=== PATIENT | male | born 1980 ===

== ENCOUNTER → 2017-09-11 | Outpatient (CLI) | payer BC ==
[~2017-09-11] MED LIST: METF500C PO
[2017-09-11 19:35] LABS: BASOPHILS ABSOLUTE AUTO 0.05 K/mm3 (0.00-0.23); BASOPHILS PERCENT AUTO 0 % (0-2); EOSINOPHILS PERCENT AUTO 7 % (0-6); Hematocrit 44.9 % (37.0-53.0); Hemoglobin 15.5 g/dL (13.5-17.5); IMMATURE GRAN ABSOLUTE AUTO 0.05 K/mm3 (0.00-0.10); IMMATURE GRAN PERCENT AUTO 0 % (0-1); LYMPHOCYTES ABSOLUTE AUTO 2.49 K/mm3 (0.84-5.20); LYMPHOCYTES PERCENT AUTO 22 % (21-46); MONOCYTES ABSOLUTE AUTO 0.92 K/mm3 (0.16-1.47); MONOCYTES PERCENT AUTO 8 % (4-13); Mean Corpuscular HGB 30.4 pg (26.0-34.0); Mean Corpuscular HGB Conc 34.5 g/dL (31.5-36.5); Mean Corpuscular Volume 88 fL (80-100); Mean Platelet Volume 9.7 fL (9.1-12.4); NEUTROPHILS PERCENT AUTO 62 % (41-73); Platelet Count 242 K/mm3 (150-400); RDW Coefficient Variation 12.7 % (11.7-14.2); RDW Standard Deviation 41.5 fL (35.1-46.3); White Blood Cell Count 11.41 K/mm3 (4.00-11.30)
[2017-09-11 19:41] LABS: Alanine Aminotransfer (ALT/SGP 63 U/L (12-78); Albumin, Blood 3.8 g/dL (3.4-5.0); Albumin/Globulin Ratio 0.8 (0.8-1.8); Alk Phos 72 U/L (50-136); Anion Gap 10 mmol/L (6-16); Aspartate Aminotrans (AST/SGOT 58 U/L (12-37); Bilirubin, Total 0.9 mg/dL (0.1-1.0); Blood Urea Nitrogen 21 mg/dL (8-24); Bun/Creatinine Ratio 25.5 (12.0-20.0); CO2, Blood 21 mmol/L (21-32); Calcium, Blood 8.7 mg/dL (8.5-10.1); Chloride, Blood 103 mmol/L (98-108); Creatinine, Blood 0.82 mg/dL (0.60-1.20); Globulin, Blood 4.7 g/dL (2.2-4.0); Glomerular Filtration Rate >60 (60-); Glucose, Blood 100 mg/dL (70-99); Potassium, Blood 3.5 mmol/L (3.5-5.5); Sodium, Blood 134 mmol/L (136-145); Total Protein, Blood 8.5 g/dL (6.4-8.2)
== END ==
LOC: LAB 19:00 → LAB SHORT 19:00
PROVIDERS: Physician Assistant
DX: R10.9 Unspecified abdominal pain (principal)
CPT/HCPCS: 80053; 85025

== ENCOUNTER 2017-09-13 15:44 | Emergency (ER) | payer BC ==
[~2017-09-13] VITALS: Ht 185.4 cm; Wt 154.2 kg
[2017-09-13] MEDS ORDERED: METF500C PO (16:15)
[2017-09-13 17:38] LABS: BASOPHILS ABSOLUTE AUTO 0.04 K/mm3 (0.00-0.23); BASOPHILS PERCENT AUTO 0 % (0-2); EOSINOPHILS ABSOLUTE AUTO 0.57 K/mm3 (0.00-0.68); EOSINOPHILS PERCENT AUTO 5 % (0-6); Hematocrit 46.2 % (37.0-53.0); Hemoglobin 15.7 g/dL (13.5-17.5); IMMATURE GRAN ABSOLUTE AUTO 0.04 K/mm3 (0.00-0.10); IMMATURE GRAN PERCENT AUTO 0 % (0-1); LYMPHOCYTES ABSOLUTE AUTO 2.89 K/mm3 (0.84-5.20); LYMPHOCYTES PERCENT AUTO 27 % (21-46); MONOCYTES ABSOLUTE AUTO 0.96 K/mm3 (0.16-1.47); MONOCYTES PERCENT AUTO 9 % (4-13); Mean Corpuscular HGB 29.9 pg (26.0-34.0); Mean Corpuscular Volume 88 fL (80-100); Mean Platelet Volume 9.4 fL (9.1-12.4); NEUTROPHILS ABSOLUTE AUTO 6.27 K/mm3 (1.96-9.15); NEUTROPHILS PERCENT AUTO 58 % (41-73); Platelet Count 249 K/mm3 (150-400); RDW Coefficient Variation 12.7 % (11.7-14.2); RDW Standard Deviation 41.3 fL (35.1-46.3); Red Blood Cell Count 5.25 M/mm3 (4.30-5.90); White Blood Cell Count 10.77 K/mm3 (4.00-11.30)
[2017-09-13 17:57] LABS: Alanine Aminotransfer (ALT/SGP 51 U/L (12-78); Albumin, Blood 3.7 g/dL (3.4-5.0); Albumin/Globulin Ratio 0.8 (0.8-1.8); Alk Phos 63 U/L (50-136); Anion Gap 11 mmol/L (6-16); Aspartate Aminotrans (AST/SGOT 56 U/L (12-37); Bilirubin, Total 0.6 mg/dL (0.1-1.0); Blood Urea Nitrogen 17 mg/dL (8-24); Bun/Creatinine Ratio 20.5 (12.0-20.0); CO2, Blood 22 mmol/L (21-32); Calcium, Blood 9.2 mg/dL (8.5-10.1); Chloride, Blood 103 mmol/L (98-108); Creatinine, Blood 0.83 mg/dL (0.60-1.20); Globulin, Blood 4.9 g/dL (2.2-4.0); Glomerular Filtration Rate >60 (60-); Glucose, Blood 83 mg/dL (70-99); Sodium, Blood 136 mmol/L (136-145); Total Protein, Blood 8.6 g/dL (6.4-8.2)
== END 2017-09-13 19:22 | disposition home or self-care (01) ==
LOC: ER 15:44
PROVIDERS: Physician Assistant
DX: R10.11 Right upper quadrant pain (principal); Z79.84 Long term (current) use of oral hypoglycemic drugs
CPT/HCPCS: 36415; 74176; 80053; 81000; 83690; 85025; 96374; 96375; 99284-25; J2405; J3010

== ENCOUNTER 2020-05-12 21:14 | Emergency (ER) | payer OTHER ==
[~2020-05-12] VITALS: Ht 185.4 cm; Wt 156.5 kg
[2020-05-12] MEDS ORDERED: Silvadene20 GM TOP (21:52)
[2020-05-12] MEDS ORDERED: AMOX-CLAV 875-1 EAC5 PO (21:52)
[2020-05-12] MEDS ORDERED: LOSARTAN POTASS25 M2 PO (21:54)
[2020-05-12] MEDS ORDERED: ESCI20 PO (21:54)
== END 2020-05-13 00:05 | disposition home or self-care (01) ==
LOC: ER 21:14
DX: T24.211A Burn of second degree of right thigh, initial encounter (principal); T21.22XA Burn of second degree of abdominal wall, initial encounter; T31.0 Burns involving less than 10% of body surface; I10 Essential (primary) hypertension; X14.1XXA Other contact with hot air and other hot gases, initial encounter; Y92.89 Other specified places as the place of occurrence of the external cause; Y99.0 Civilian activity done for income or pay
CPT/HCPCS: 99282; A9270

== ENCOUNTER 2020-05-24 00:27 | Day surgery (SDC) | payer OTHER ==
[~2020-05-24 00:27] MED LIST changes: +AMOX-CLAV 875-1 EAC5 PO; +ESCI20 PO; +LOSARTAN POTASS25 M2 PO; +Silvadene20 GM TOP
== END 2020-05-24 22:56 | disposition home or self-care (01) ==
LOC: WOUND 00:27
DX: T21.29XA Burn of second degree of other site of trunk, initial encounter (principal); T24.211A Burn of second degree of right thigh, initial encounter; X11.8XXA Contact with other hot tap-water, initial encounter
CPT/HCPCS: A9270; G0463

== ENCOUNTER 2020-05-31 00:20 | Day surgery (SDC) | payer OTHER | END 2020-05-31 23:02 | disposition home or self-care (01) | LOC: WOUND 00:20 | DX: T21.22XA Burn of second degree of abdominal wall, initial encounter (principal); X12.XXXA Contact with other hot fluids, initial encounter | CPT/HCPCS: G0463 ==

== ENCOUNTER 2021-02-03 13:02 | Inpatient (IN) | payer OTHER ==
[~2021-02-03] VITALS: Ht 188 cm; Wt 133.8 kg
[2021-02-03] MEDS ORDERED: LOSA50 PO (14:12)
[2021-02-03] MEDS ORDERED: FLUO10 PO (14:13)
[2021-02-03 14:14] LABS: BASOPHILS ABSOLUTE AUTO 0.01 K/mm3 (0.00-0.23); BASOPHILS PERCENT AUTO 0 % (0-2); EOSINOPHILS ABSOLUTE AUTO 0.01 K/mm3 (0.00-0.68); EOSINOPHILS PERCENT AUTO 0 % (0-6); Hemoglobin 17.2 g/dL (13.5-17.5); IMMATURE GRAN ABSOLUTE AUTO 0.07 K/mm3 (0.00-0.10); IMMATURE GRAN PERCENT AUTO 1 % (0-1); LYMPHOCYTES ABSOLUTE AUTO 0.91 K/mm3 (0.84-5.20); LYMPHOCYTES PERCENT AUTO 15 % (21-46); MONOCYTES ABSOLUTE AUTO 0.32 K/mm3 (0.16-1.47); MONOCYTES PERCENT AUTO 5 % (4-13); Mean Corpuscular HGB 30.2 pg (26.0-34.0); Mean Corpuscular HGB Conc 35.1 g/dL (31.5-36.5); Mean Corpuscular Volume 86 fL (80-100); Mean Platelet Volume 10.1 fL (9.1-12.4); NEUTROPHILS ABSOLUTE AUTO 4.59 K/mm3 (1.96-9.15); NEUTROPHILS PERCENT AUTO 78 % (41-73); Platelet Count 204 K/mm3 (150-400); RDW Coefficient Variation 11.7 % (11.7-14.2); RDW Standard Deviation 36.7 fL (35.1-46.3); Red Blood Cell Count 5.69 M/mm3 (4.30-5.90); White Blood Cell Count 5.91 K/mm3 (4.00-11.30)
[2021-02-03 14:47] LABS: Alanine Aminotransfer (ALT/SGP 49 U/L (12-78); Albumin, Blood 2.3 g/dL (3.4-5.0); Albumin/Globulin Ratio 0.5 (0.8-1.8); Alk Phos 54 U/L (50-136); Anion Gap 9 mmol/L (6-16); Aspartate Aminotrans (AST/SGOT 39 U/L (12-37); Blood Urea Nitrogen 16 mg/dL (8-24); Bun/Creatinine Ratio 22.1 (12.0-20.0); CO2, Blood 24 mmol/L (21-32); Calcium, Blood 8.4 mg/dL (8.5-10.1); Chloride, Blood 95 mmol/L (98-108); Creatinine, Blood 0.72 mg/dL (0.60-1.20); Globulin, Blood 4.9 g/dL (2.2-4.0); Glomerular Filtration Rate >60 (60-); Glucose, Blood 472 mg/dL (70-99); Potassium, Blood 4.2 mmol/L (3.5-5.5); Sodium, Blood 128 mmol/L (136-145); Total Protein, Blood 7.2 g/dL (6.4-8.2)
[2021-02-03 14:49] LABS: Troponin I 0.972 ng/mL (0.000-0.040)
[2021-02-03 16:04] LABS: Influenza A, PCR NEGATIVE (NEGATIVE); Influenza B, PCR NEGATIVE (NEGATIVE); Resp Syncytial Virus, PCR NEGATIVE (NEGATIVE); SARS-Cov-2 (COVID-19) PCR, MMC NEGATIVE (NEGATIVE)
[2021-02-04 02:15] LABS: BASOPHILS ABSOLUTE AUTO 0.01 K/mm3 (0.00-0.23); BASOPHILS PERCENT AUTO 0 % (0-2); EOSINOPHILS PERCENT AUTO 0 % (0-6); Hematocrit 46.7 % (37.0-53.0); Hemoglobin 16.6 g/dL (13.5-17.5); IMMATURE GRAN ABSOLUTE AUTO 0.04 K/mm3 (0.00-0.10); IMMATURE GRAN PERCENT AUTO 1 % (0-1); LYMPHOCYTES ABSOLUTE AUTO 0.95 K/mm3 (0.84-5.20); LYMPHOCYTES PERCENT AUTO 25 % (21-46); MONOCYTES ABSOLUTE AUTO 0.11 K/mm3 (0.16-1.47); MONOCYTES PERCENT AUTO 3 % (4-13); Mean Corpuscular HGB 30.5 pg (26.0-34.0); Mean Corpuscular HGB Conc 35.5 g/dL (31.5-36.5); Mean Corpuscular Volume 86 fL (80-100); Mean Platelet Volume 9.9 fL (9.1-12.4); NEUTROPHILS ABSOLUTE AUTO 2.77 K/mm3 (1.96-9.15); NEUTROPHILS PERCENT AUTO 71 % (41-73); Platelet Count 202 K/mm3 (150-400); RDW Coefficient Variation 11.6 % (11.7-14.2); RDW Standard Deviation 36.8 fL (35.1-46.3); Red Blood Cell Count 5.45 M/mm3 (4.30-5.90); White Blood Cell Count 3.88 K/mm3 (4.00-11.30)
[2021-02-04 06:30] LABS: Alanine Aminotransfer (ALT/SGP 50 U/L (12-78); Albumin/Globulin Ratio 0.4 (0.8-1.8); Alk Phos 50 U/L (50-136); Anion Gap 9 mmol/L (6-16); Aspartate Aminotrans (AST/SGOT 41 U/L (12-37); Bilirubin, Total 0.4 mg/dL (0.1-1.0); Blood Urea Nitrogen 22 mg/dL (8-24); Bun/Creatinine Ratio 29.1 (12.0-20.0); CHOL/HDL RATIO 5.9; CO2, Blood 25 mmol/L (21-32); Calcium, Blood 8.8 mg/dL (8.5-10.1); Chloride, Blood 103 mmol/L (98-108); Cholesterol 113 mg/dL (50-200); Creatinine, Blood 0.76 mg/dL (0.60-1.20); Globulin, Blood 5.2 g/dL (2.2-4.0); Glomerular Filtration Rate >60 (60-); Glucose, Blood 336 mg/dL (70-99); HDL Cholesterol 19 mg/dL (>39); Low Density Lipoprotein Chol 77 mg/dL (0-110); Potassium, Blood 4.4 mmol/L (3.5-5.5); Sodium, Blood 137 mmol/L (136-145); Total Protein, Blood 7.2 g/dL (6.4-8.2); Triglycerides 87 mg/dL (30-160); Very Low Density Lipoprot Chol 17 mg/dL (6-32)
--- NOTE | 2021-02-04 06:38 | NUR ---
SHIFT SUMMARY S/P NSTEMI, A/O X4, VSS, TOLERATING PO, INDEPENDENT IN ROOM, CBG'S HIGH R/T STEROID USE FOR RA FLARE UP. PT STABLE SINCE ARRIVAL TO THE FLOOR, NO ACUTE EVENTS THIS SHIFT, CALL LIGHT IN REACH, WILL CTM AND REPORT TO DAY RN.
--- NOTE | 2021-02-04 15:49 | NUR ---
PATIENT CURRENTLY LYING IN BED WITH NO SIGNS OR SYMPTOMS ACUTE DISTRESS NOTED. CALL LIGHT AND WATER IN EASY REACH. ABLE TO MAKE NEEDS AND WANTS KNOWN. SUTURES TO LEFT KNEE REMOVED TODAY, PATIENT TOLERATED WELL. PATIENT HAS PICC LINE TO LEFT UPPER ARM DR ARIAS SAID COULD BE USED AND BLOOD DRAWS FROM IT. PATIENT ABLE TO STAND AT BEDSIDE TO USE THE URINAL WITH WALKER. KNEE IMMOBILIZER ON CORRECTLY. PATIENT IS ALERT AND OREINTED WITH NO COMPLAINTS OF PAIN. WILEY XIE.
--- NOTE | 2021-02-04 16:23 | NUR ---
Pt reported no prior diabetes diet education and was interested in education. Pt already had good understanding of what foods impact blood sugars, so discussed recommended portion sizes and benefits of choosing whole grains over refined grains. Pt typically eats 1 meal/d, so encouraged pt to aim for more consistent intake throughout the day to prevent large swings in blood sugars and overconsumption at 1 meal per day d/t hunger. Discussed role of physical activity in reducing blood sugars. Discussed impact of stress, illness, and medications on blood sugars. Moderate compliance expected.
--- NOTE | 2021-02-04 17:16 | NUR ---
PATIENT CURRENTLY LYING IN BED WITH NO SIGNS OR SYMPTOMS ACUTE DISTRESS NOTED. CALL LIGHT AND WATER IN EASY REACH. ABLE TO MAKE NEEDS AND WANTS KNOWN. CARDIOLOGY CONSULTED ON PATIENT TODAY. NO COMPLAINTS OF CHEST PAIN TODAY. HEPARIN GTT STOPPED. WILL MONITOR.
[2021-02-04 20:41] LABS: Glucose, Blood 564 mg/dL (70-99)
[2021-02-04 21:24] LABS: pH Blood Arterial 7.48 (7.35-7.45)
[2021-02-04 21:25] LABS: PCO2 Arterial 30.1 mmHg (35-45); PO2 Arterial 91.8 mmHg (80-100)
[2021-02-04 21:57] LABS: U Amphetamine Screen Not Detected; U Barbituate Screen Not Detected; U Benzodiazapine Screen Not Detected; U Buprenorphine Screen Not Detected; U Cannabinoids Screen Not Detected; U Cocaine Screen Not Detected; U Methadone Screen Not Detected; U Methamphetamine Screen Not Detected; U Opiates Screen Not Detected; U Oxycodone Screen Not Detected; U Phencyclidine Screen Not Detected; U Propoxyphene Screen Not Detected
[2021-02-04 22:27] LABS: Beta-hydroxybutyrate 3.3 mg/dL (0.2-2.8); Magnesium, Blood 1.9 mg/dL (1.6-2.4); Phosphorus, Blood 2.8 mg/dL (2.5-4.9)
[2021-02-04 22:34] LABS: Glucose, Blood 509 mg/dL (70-99)
--- NOTE | 2021-02-04 23:40 | NUR ---
PT BLOOD SUGAR LEVEL REMAINS ELEVATED MUCH OF THE EVENING. NURSE REMAINS IN TOUCH WITH DR CORONADO WHO PUT IN ORDERS SUCH EXTRA INSULIN, BLOOD WORK AND HOLD MIDNIGHT STEROID MEDICINE. ORDERS WERE CARRIED OUT INSTRUCTED, PT MADE AWARE OF HIS CONDITION AND WHAT IS BEING DONE TO IMPROVE HIS HIGH BLOOD SUGAR LEVELS.
[2021-02-05 00:28] LABS: Glucose, Blood 466 mg/dL (70-99)
[2021-02-05 04:28] LABS: BASOPHILS ABSOLUTE AUTO 0.01 K/mm3 (0.00-0.23); BASOPHILS PERCENT AUTO 0 % (0-2); EOSINOPHILS PERCENT AUTO 0 % (0-6); Hematocrit 43.1 % (37.0-53.0); Hemoglobin 15.6 g/dL (13.5-17.5); IMMATURE GRAN ABSOLUTE AUTO 0.05 K/mm3 (0.00-0.10); IMMATURE GRAN PERCENT AUTO 1 % (0-1); LYMPHOCYTES ABSOLUTE AUTO 1.05 K/mm3 (0.84-5.20); LYMPHOCYTES PERCENT AUTO 13 % (21-46); MONOCYTES ABSOLUTE AUTO 0.77 K/mm3 (0.16-1.47); MONOCYTES PERCENT AUTO 10 % (4-13); Mean Corpuscular HGB 30.5 pg (26.0-34.0); Mean Corpuscular HGB Conc 36.2 g/dL (31.5-36.5); Mean Corpuscular Volume 84 fL (80-100); Mean Platelet Volume 10.2 fL (9.1-12.4); NEUTROPHILS ABSOLUTE AUTO 6.02 K/mm3 (1.96-9.15); NEUTROPHILS PERCENT AUTO 76 % (41-73); Platelet Count 227 K/mm3 (150-400); RDW Coefficient Variation 11.5 % (11.7-14.2); RDW Standard Deviation 35.5 fL (35.1-46.3); Red Blood Cell Count 5.11 M/mm3 (4.30-5.90)
[2021-02-05 04:51] LABS: Anion Gap 6 mmol/L (6-16); Blood Urea Nitrogen 25 mg/dL (8-24); Bun/Creatinine Ratio 39.1 (12.0-20.0); CO2, Blood 25 mmol/L (21-32); Calcium, Blood 8.7 mg/dL (8.5-10.1); Chloride, Blood 106 mmol/L (98-108); Creatinine, Blood 0.64 mg/dL (0.60-1.20); Glomerular Filtration Rate >60 (60-); Glucose, Blood 353 mg/dL (70-99); Potassium, Blood 4.3 mmol/L (3.5-5.5); Sodium, Blood 137 mmol/L (136-145)
--- NOTE | 2021-02-05 15:30 | NUR ---
Pt. was resting on his side when he welcomed my visit. Pt. was clearly gaurded about his condition and I offered support and prayer. He kindly denied prayer, but thanked me for stopping o see him.
--- NOTE | 2021-02-05 17:26 | NUR ---
PATIENT LYING IN BED WITH NO SIGNS OR SYMPTOMS ACUTE DISTRESS NOTED. CALL LIGHT AND WATER IN EASY REACH. ABLE TO MAKE NEEDS AND WANTS KNOWN. NO COMPLAINTS OF CHEST PAIN TODAY. FIRST PART OF STRESS TEST ADMINISTERED TODAY. PATIENT WILL BE NPO AFTER MIDNIGHT, NO CAFFEINE OR CAFFIENE FREE COFFEE AFTER 2000 TONIGHT. PATIENT MAY HAVE WATER AFTER MIDNIGHT. PATIENT IS AWARE OF THIS AND VERBALIZED UNDERSTANDING. MEDICATION CHANGES MADE TODAY IN REGARDS TO PATIENTS BLOOD SUGARS.
--- NOTE | 2021-02-05 21:16 | NUR ---
BS 378, NOTIFIED RYAN OROZCO, NO NEW ORDERS, RECEIVED SCHEDULED LANTUS AND INSULIN PER SLIDING SCALE.
--- NOTE | 2021-02-06 04:56 | NUR ---
ALERT AND ORIENTED X'S 4. DENIES PAIN OR DISCOMFORT. SLEPT WELL THROUGH NIGHT, REMAINED NPO AFTER 12AM. RESTING PEACEFULLY IN BED, SAFETY MAINTAED.
[2021-02-06] MEDS ORDERED: ASPI81CH PO (11:45)
[2021-02-06] MEDS ORDERED: Amlodipine Bes2.5 MG PO (11:45)
[2021-02-06] MEDS ORDERED: ATOR80 PO (11:46)
[2021-02-06] MEDS ORDERED: METO50ER PO (11:47)
[2021-02-06] MEDS ORDERED: Prednisone10 MG PO (11:48)
[2021-02-06] MEDS ORDERED: INSULANPEN SC (11:50)
[2021-02-06] MEDS ORDERED: INSULIN LI100 UNIT/6 SC (11:52)
[2021-02-06] MEDS ORDERED: INSULANI SC (11:52)
[2021-02-06] MEDS ORDERED: Microlet1 EACH SC (14:20)
--- NOTE | 2021-02-06 16:21 | NUR ---
DISCHARGE: DISCHARGE INSTUCTIONS GIVEN TO PATIENT AT THIS TIME. PATIENT VERBALIZED UNDERSTANDING. PATIENT TO FOLLOW UP PCP, REUMATOLOGY AND CARIOLOGY. NO SIGNS OR SYMPTOMS ACUTE DISTRESS NOTED. IV'S REMOVED.
== END 2021-02-06 16:24 | disposition home or self-care (01) | DRG 545 ==
LOC: ER 13:02 → ERHOLD 16:46 → SURS 16:46
PROVIDERS: Hospitalist; Nurse Practitioner Acute Care; Physician Assistant; Student in an Organized Health Care Education/Training Program; ADMIT Internal Medicine
DX: M05.30 Rheumatoid heart disease with rheumatoid arthritis of unspecified site (principal); I21.4 Non-ST elevation (NSTEMI) myocardial infarction; I10 Essential (primary) hypertension; E11.65 Type 2 diabetes mellitus with hyperglycemia; Z20.822 Contact with and (suspected) exposure to COVID-19; E66.9 Obesity, unspecified; G47.30 Sleep apnea, unspecified; R00.1 Bradycardia, unspecified; F32.A Depression, unspecified; H54.40 Blindness, one eye, unspecified eye; F17.290 Nicotine dependence, other tobacco product, uncomplicated; R91.1 Solitary pulmonary nodule; Z68.38 Body mass index [BMI] 38.0-38.9, adult; Z79.899 Other long term (current) drug therapy; Z79.84 Long term (current) use of oral hypoglycemic drugs
CPT/HCPCS: 0241U; 36415; 36600; 71046; 71260; 78452; 80048; 80053; 80061; 82010; 82803; 82947; 83036; 83690; 83735; 83880; 84100; 84484; 85025; 85520; 85651; 86140; 93005; 93010; 93017; 93306; 96365; 96366; 96375; 96376; 99285-25; A9270; A9500; J1644; J1815; J1885; J2785; J2930; J3010; J7030; Q9967

== ENCOUNTER 2021-04-17 07:55 | Observation (INO) | payer OTHER ==
[~2021-04-17] VITALS: Ht 185.4 cm; Wt 117.2 kg
[~2021-04-17 07:55] MED LIST changes: +ASPI81CH PO; +ATOR80 PO; +Amlodipine Bes2.5 MG PO; +FLUO10 PO; +INSULANI SC; +INSULANPEN SC; +INSULIN LI100 UNIT/6 SC; +LOSA50 PO; +METO50ER PO; +Microlet1 EACH SC; +Prednisone10 MG PO
[2021-04-17 08:26] LABS: BASOPHILS ABSOLUTE AUTO 0.02 K/mm3 (0.00-0.23); BASOPHILS PERCENT AUTO 0 % (0-2); EOSINOPHILS ABSOLUTE AUTO 0.06 K/mm3 (0.00-0.68); EOSINOPHILS PERCENT AUTO 1 % (0-6); Hemoglobin 12.2 g/dL (13.5-17.5); IMMATURE GRAN ABSOLUTE AUTO 0.06 K/mm3 (0.00-0.10); IMMATURE GRAN PERCENT AUTO 1 % (0-1); LYMPHOCYTES PERCENT AUTO 15 % (21-46); MONOCYTES ABSOLUTE AUTO 0.22 K/mm3 (0.16-1.47); MONOCYTES PERCENT AUTO 5 % (4-13); Mean Corpuscular HGB 29.6 pg (26.0-34.0); Mean Corpuscular HGB Conc 33.9 g/dL (31.5-36.5); Mean Corpuscular Volume 87 fL (80-100); Mean Platelet Volume 8.8 fL (9.1-12.4); NEUTROPHILS ABSOLUTE AUTO 3.73 K/mm3 (1.96-9.15); NEUTROPHILS PERCENT AUTO 78 % (41-73); Platelet Count 388 K/mm3 (150-400); RDW Coefficient Variation 12.8 % (11.7-14.2); RDW Standard Deviation 40.6 fL (35.1-46.3); Red Blood Cell Count 4.12 M/mm3 (4.30-5.90); White Blood Cell Count 4.79 K/mm3 (4.00-11.30)
[2021-04-17 08:48] LABS: Alanine Aminotransfer (ALT/SGP 37 U/L (12-78); Albumin, Blood 2.2 g/dL (3.4-5.0); Albumin/Globulin Ratio 0.4 (0.8-1.8); Alk Phos 75 U/L (50-136); Anion Gap 7 mmol/L (6-16); Aspartate Aminotrans (AST/SGOT 34 U/L (12-37); Bilirubin, Total 0.8 mg/dL (0.1-1.0); Blood Urea Nitrogen 6 mg/dL (8-24); Bun/Creatinine Ratio 10.8 (12.0-20.0); CO2, Blood 28 mmol/L (21-32); Calcium, Blood 8.4 mg/dL (8.5-10.1); Chloride, Blood 100 mmol/L (98-108); Creatinine, Blood 0.55 mg/dL (0.60-1.20); Glomerular Filtration Rate >60 (60-); Glucose, Blood 208 mg/dL (70-99); Potassium, Blood 3.5 mmol/L (3.5-5.5); Sodium, Blood 135 mmol/L (136-145); Total Protein, Blood 7.2 g/dL (6.4-8.2)
--- NOTE | 2021-04-17 17:50 | NUR ---
SHIFT SUMMARY PATIENT ADMITTED AT 1330 FROM ER. PATIENT SETTLED INTO ROOM. PATIENT IS INDEPENDENT IN ROOM. ECHO COMPLETE, AWAITING RESULTS. PATIENT DENIES PAIN, NAUSEA, AND SHORTNESS OF BREATH. PATIENT IS EATING AND DRINKING WELL. PATIENT IS PLEASANT AND COOPERATIVE WITH CARE.
[2021-04-18 04:53] LABS: BASOPHILS ABSOLUTE AUTO 0.01 K/mm3 (0.00-0.23); BASOPHILS PERCENT AUTO 0 % (0-2); EOSINOPHILS PERCENT AUTO 0 % (0-6); Hematocrit 35.2 % (37.0-53.0); Hemoglobin 11.9 g/dL (13.5-17.5); IMMATURE GRAN ABSOLUTE AUTO 0.03 K/mm3 (0.00-0.10); IMMATURE GRAN PERCENT AUTO 1 % (0-1); LYMPHOCYTES ABSOLUTE AUTO 0.91 K/mm3 (0.84-5.20); LYMPHOCYTES PERCENT AUTO 20 % (21-46); MONOCYTES ABSOLUTE AUTO 0.24 K/mm3 (0.16-1.47); MONOCYTES PERCENT AUTO 5 % (4-13); Mean Corpuscular HGB 29.1 pg (26.0-34.0); Mean Corpuscular HGB Conc 33.8 g/dL (31.5-36.5); Mean Corpuscular Volume 86 fL (80-100); NEUTROPHILS ABSOLUTE AUTO 3.45 K/mm3 (1.96-9.15); NEUTROPHILS PERCENT AUTO 74 % (41-73); Platelet Count 423 K/mm3 (150-400); RDW Coefficient Variation 12.7 % (11.7-14.2); RDW Standard Deviation 40.1 fL (35.1-46.3); Red Blood Cell Count 4.09 M/mm3 (4.30-5.90); White Blood Cell Count 4.64 K/mm3 (4.00-11.30)
--- NOTE | 2021-04-18 04:57 | NUR ---
SHIFT SUMMARY: PT IS A/OX4. HE WAS INDEPENDENT IN THE ROOM. PER TELE MONITOR: SR/73. HIS ACCUCHECK WAS 372 @ 2100 W/ NO SS COVERAGE--THE PT STATES THIS IS A NORMAL NUMBER FOR HIM. HE DID RECEIVE 1L OF NS AND IS NOW SL. INITIALLY HE DID HAVE C/O OF PAIN, BUT NEVER REQUESTED ANY PRN PAIN MEDICATION. WE WILL CONTINUE TO MONITOR THE REST OF THE NOC SHIFT.
[2021-04-18 05:43] LABS: Alanine Aminotransfer (ALT/SGP 27 U/L (12-78); Albumin, Blood 2.2 g/dL (3.4-5.0); Albumin/Globulin Ratio 0.5 (0.8-1.8); Alk Phos 78 U/L (50-136); Anion Gap 8 mmol/L (6-16); Aspartate Aminotrans (AST/SGOT 29 U/L (12-37); Bilirubin, Total 0.6 mg/dL (0.1-1.0); Blood Urea Nitrogen 12 mg/dL (8-24); Bun/Creatinine Ratio 21.4 (12.0-20.0); CO2, Blood 27 mmol/L (21-32); Calcium, Blood 8.5 mg/dL (8.5-10.1); Chloride, Blood 101 mmol/L (98-108); Creatinine, Blood 0.56 mg/dL (0.60-1.20); Globulin, Blood 4.6 g/dL (2.2-4.0); Glomerular Filtration Rate >60 (60-); Glucose, Blood 321 mg/dL (70-99); Potassium, Blood 4.6 mmol/L (3.5-5.5); Sodium, Blood 136 mmol/L (136-145); Total Protein, Blood 6.8 g/dL (6.4-8.2)
[2021-04-18] MEDS ORDERED: COLCHICINE0.6 MG PO (12:03)
[2021-04-18] MEDS ORDERED: PRED20 PO (12:04)
[2021-04-18] MEDS ORDERED: GLIP5 PO (12:04)
--- NOTE | 2021-04-18 13:22 | NUR ---
DISCHARGE SUMMARY PATIENT DISCHARGED HOME. MEDICATIONS FAXED TO [facility]. PATIENT TO SCHEDULE F/U APPT HIMSELF PER PATIENT REQUEST. DISCHARGE PAPERWORK REVIEWED AND ALL QUESTIONS ANSWERED. ALL BELONGSING TAKEN WITH PATIENT.
== END 2021-04-18 13:16 | disposition home or self-care (01) ==
LOC: ER 07:55 → MEDS 07:56
PROVIDERS: Emergency Medicine; ADMIT Internal Medicine
DX: I30.9 Acute pericarditis, unspecified (principal); M06.9 Rheumatoid arthritis, unspecified; E11.65 Type 2 diabetes mellitus with hyperglycemia; I10 Essential (primary) hypertension; F17.290 Nicotine dependence, other tobacco product, uncomplicated; K59.00 Constipation, unspecified; E66.9 Obesity, unspecified; F32.A Depression, unspecified; Z68.36 Body mass index [BMI] 36.0-36.9, adult; Z79.4 Long term (current) use of insulin
CPT/HCPCS: 36415; 71045; 80053; 82947; 84484; 85025; 85651; 86141; 93005; 93010; 93308; 93321; 96372; 96374; 99285-25; A9270; G0378; J1650; J2930; J7030

== ENCOUNTER 2021-08-28 14:20 | Emergency (ER) | payer OTHER ==
[~2021-08-28] VITALS: Ht 188 cm; Wt 111.1 kg
[~2021-08-28 14:20] MED LIST changes: +COLCHICINE0.6 MG PO; +GLIP5 PO; +IBUP200 PO; +PRED20 PO; +Prednisone20 MG PO; +Protonix40 MG PO
[2021-08-28 15:05] LABS: BASOPHILS ABSOLUTE AUTO 0.01 K/mm3 (0.00-0.23); BASOPHILS PERCENT AUTO 0 % (0-2); EOSINOPHILS ABSOLUTE AUTO 0.18 K/mm3 (0.00-0.68); EOSINOPHILS PERCENT AUTO 4 % (0-6); Hematocrit 38.3 % (37.0-53.0); Hemoglobin 12.8 g/dL (13.5-17.5); IMMATURE GRAN ABSOLUTE AUTO 0.04 K/mm3 (0.00-0.10); IMMATURE GRAN PERCENT AUTO 1 % (0-1); LYMPHOCYTES ABSOLUTE AUTO 1.03 K/mm3 (0.84-5.20); LYMPHOCYTES PERCENT AUTO 21 % (21-46); MONOCYTES PERCENT AUTO 6 % (4-13); Mean Corpuscular HGB 28.1 pg (26.0-34.0); Mean Corpuscular HGB Conc 33.4 g/dL (31.5-36.5); Mean Corpuscular Volume 84 fL (80-100); Mean Platelet Volume 8.2 fL (9.1-12.4); NEUTROPHILS ABSOLUTE AUTO 3.46 K/mm3 (1.96-9.15); NEUTROPHILS PERCENT AUTO 69 % (41-73); Platelet Count 436 K/mm3 (150-400); RDW Coefficient Variation 14.3 % (11.7-14.2); RDW Standard Deviation 44.1 fL (35.1-46.3); Red Blood Cell Count 4.56 M/mm3 (4.30-5.90); White Blood Cell Count 5.02 K/mm3 (4.00-11.30)
[2021-08-28 15:26] LABS: Albumin/Globulin Ratio 0.5 (0.8-1.8); Bilirubin, Total 0.4 mg/dL (0.1-1.0); C-REACTIVE PROTEIN, EXT RANGE 11.4 mg/dL (0.000-0.300); Calcium, Blood 9.3 mg/dL (8.5-10.1); Creatinine, Blood 0.62 mg/dL (0.60-1.20); Globulin, Blood 5.9 g/dL (2.2-4.0); Potassium, Blood 4.2 mmol/L (3.5-5.5); Total Protein, Blood 8.9 g/dL (6.4-8.2)
[2021-08-28] MEDS ORDERED: Bactrim Ds Tab1 EACH PO ×2 (16:10→16:12)
[2021-08-28] MEDS ORDERED: CEPH500 PO ×2 (16:10→16:12)
[2021-08-28] MEDS ORDERED: Percocet 5-3251 EACH PO (16:12)
== END 2021-08-28 17:11 | disposition home or self-care (01) ==
LOC: ER 14:20
PROVIDERS: Physician Assistant
DX: L03.115 Cellulitis of right lower limb (principal); I10 Essential (primary) hypertension; E11.9 Type 2 diabetes mellitus without complications; F17.210 Nicotine dependence, cigarettes, uncomplicated; Z88.8 Allergy status to other drugs, medicaments and biological substances; Z91.018 Allergy to other foods; Z79.899 Other long term (current) drug therapy
CPT/HCPCS: 36415; 73562-RT; 80053; 85025; 86140; A9270; J1885; J7030

== ENCOUNTER 2021-11-02 10:21 | Emergency (ER) | payer OTHER ==
[~2021-11-02] VITALS: Ht 185.4 cm; Wt 113.4 kg
[~2021-11-02 10:21] MED LIST changes: +Bactrim Ds Tab1 EACH PO; +CEPH500 PO; +Percocet 5-3251 EACH PO
[2021-11-02] MEDS ORDERED: Bactrim Ds Tab1 EACH PO (10:59)
[2021-11-02] MEDS ORDERED: CEPH500 PO (10:59)
== END 2021-11-02 11:06 | disposition home or self-care (01) ==
LOC: ER 10:21
DX: L02.611 Cutaneous abscess of right foot (principal); I10 Essential (primary) hypertension; E11.9 Type 2 diabetes mellitus without complications; F17.290 Nicotine dependence, other tobacco product, uncomplicated; F17.210 Nicotine dependence, cigarettes, uncomplicated; Z88.8 Allergy status to other drugs, medicaments and biological substances; Z91.018 Allergy to other foods
CPT/HCPCS: 99282

== ENCOUNTER 2021-11-28 21:50 | Inpatient (IN) | payer OTHER ==
[~2021-11-28] VITALS: Ht 185.4 cm; Wt 104.0 kg
[2021-11-29 00:02] LABS: BASOPHILS ABSOLUTE AUTO 0.01 K/mm3 (0.00-0.23); BASOPHILS PERCENT AUTO 0 % (0-2); EOSINOPHILS ABSOLUTE AUTO 0.07 K/mm3 (0.00-0.68); EOSINOPHILS PERCENT AUTO 2 % (0-6); Hematocrit 37.3 % (37.0-53.0); Hemoglobin 12.7 g/dL (13.5-17.5); IMMATURE GRAN PERCENT AUTO 0 % (0-1); LYMPHOCYTES ABSOLUTE AUTO 1.08 K/mm3 (0.84-5.20); LYMPHOCYTES PERCENT AUTO 30 % (21-46); MONOCYTES PERCENT AUTO 8 % (4-13); Mean Corpuscular HGB 28.7 pg (26.0-34.0); Mean Corpuscular Volume 84 fL (80-100); Mean Platelet Volume 9.4 fL (9.1-12.4); NEUTROPHILS ABSOLUTE AUTO 2.11 K/mm3 (1.96-9.15); NEUTROPHILS PERCENT AUTO 59 % (41-73); Platelet Count 217 K/mm3 (150-400); RDW Standard Deviation 42.9 fL (35.1-46.3); Red Blood Cell Count 4.43 M/mm3 (4.30-5.90); White Blood Cell Count 3.57 K/mm3 (4.00-11.30)
[2021-11-29 00:22] LABS: Albumin, Blood 2.9 g/dL (3.4-5.0); Albumin/Globulin Ratio 0.5 (0.8-1.8); Bilirubin, Total 0.4 mg/dL (0.1-1.0); Bun/Creatinine Ratio 14.4 (12.0-20.0); C-REACTIVE PROTEIN, EXT RANGE 9.18 mg/dL (0.000-0.300); Calcium, Blood 8.8 mg/dL (8.5-10.1); Creatinine, Blood 0.84 mg/dL (0.60-1.20); Globulin, Blood 5.8 g/dL (2.2-4.0); Potassium, Blood 3.8 mmol/L (3.5-5.5); Total Protein, Blood 8.7 g/dL (6.4-8.2)
--- NOTE | 2021-11-29 03:46 | NUR ---
REPORT FROM RAHUL CENTENO IN ER. NO CHANGES SINCE ER PHYSICIAN DOCUMENTATION. AWAITING PATIENT ARRIVAL.
--- NOTE | 2021-11-29 05:35 | NUR ---
PATIENT IS ALERT AND ORIENTED x 4. UP INDEPENDENTLY IN ROOM. AMBULATES WALKING ON LEFT HEEL. LEFT FOOT PAIN HERRERA WITH SHARP PAINS SHOOTING UP LEG. FENTANYL AND TORADOL GIVEN FOR RELIEF. FOOT ELEVATED ON PILLOW AND WRAPPED. PHOTOS ON CHART
--- NOTE | 2021-11-29 07:56 | NUR ---
CALLED SURGERY CONSULT ANSWERING SERVICE AND TALKED TO FIELD GEOLOGIST. LEFT INDFORMATION FOR SURGICAL CONSULT.
[2021-11-29 08:20] LABS: BASOPHILS ABSOLUTE AUTO 0.01 K/mm3 (0.00-0.23); BASOPHILS PERCENT AUTO 0 % (0-2); EOSINOPHILS ABSOLUTE AUTO 0.09 K/mm3 (0.00-0.68); EOSINOPHILS PERCENT AUTO 3 % (0-6); Hematocrit 34.1 % (37.0-53.0); Hemoglobin 11.5 g/dL (13.5-17.5); IMMATURE GRAN ABSOLUTE AUTO 0.01 K/mm3 (0.00-0.10); IMMATURE GRAN PERCENT AUTO 0 % (0-1); LYMPHOCYTES ABSOLUTE AUTO 0.86 K/mm3 (0.84-5.20); LYMPHOCYTES PERCENT AUTO 24 % (21-46); MONOCYTES ABSOLUTE AUTO 0.41 K/mm3 (0.16-1.47); MONOCYTES PERCENT AUTO 12 % (4-13); Mean Corpuscular HGB 28.5 pg (26.0-34.0); Mean Corpuscular HGB Conc 33.7 g/dL (31.5-36.5); Mean Corpuscular Volume 84 fL (80-100); Mean Platelet Volume 9.4 fL (9.1-12.4); NEUTROPHILS ABSOLUTE AUTO 2.17 K/mm3 (1.96-9.15); NEUTROPHILS PERCENT AUTO 61 % (41-73); Platelet Count 192 K/mm3 (150-400); RDW Standard Deviation 43.3 fL (35.1-46.3); Red Blood Cell Count 4.04 M/mm3 (4.30-5.90); White Blood Cell Count 3.55 K/mm3 (4.00-11.30)
--- NOTE | 2021-11-29 08:29 | NUR ---
CALLED PODIATARY CONSULT DR JANE. HE SAID HE WILL BE HERE THIS AFTERNOON AND PT MAY EAT BREAKFAST THEN NPO AGAIN.
[2021-11-29 08:30] LABS: Albumin, Blood 2.4 g/dL (3.4-5.0); Albumin/Globulin Ratio 0.4 (0.8-1.8); Bilirubin, Total 0.8 mg/dL (0.1-1.0); Bun/Creatinine Ratio 13.9 (12.0-20.0); Calcium, Blood 8.2 mg/dL (8.5-10.1); Creatinine, Blood 0.79 mg/dL (0.60-1.20); Globulin, Blood 5.5 g/dL (2.2-4.0); Potassium, Blood 3.7 mmol/L (3.5-5.5); Total Protein, Blood 7.9 g/dL (6.4-8.2)
--- NOTE | 2021-11-29 08:34 | NUR ---
DR JANE CALLED BACK - ORDER CHANGED TO NPO
[2021-11-29 11:18] LABS: Influenza A, PCR NEGATIVE (NEGATIVE); Influenza B, PCR NEGATIVE (NEGATIVE); Resp Syncytial Virus, PCR NEGATIVE (NEGATIVE); SARS-Cov-2 (COVID-19) PCR, MMC NEGATIVE (NEGATIVE)
--- NOTE | 2021-11-29 14:57 | NUR ---
MR ARIAS WENT TO THE OR AT 1440HRS. MEDICATED ONCE THIS SHIFT WITH FENTANYL 25MCG IV WHICH HELPED TO EASE THE R FOOT PAIN. DRESSING LEFT UNDISTURBED THIS AM PLAN TO GO TO OR TODAY. KEPT NPO THIS AM. UP INDEPENDENTLY TO BATHROOM. IVF CONTINUOUS PRE OR.
--- NOTE | 2021-11-29 15:13 | NUR ---
PT HAS AN 18 G IV IN L WRIST THAT FLUSHES WELL AND RUNS WELL TO GRAVITY. IT SHOWS NO SIGNS OF INFILTRATION, NO SWELLING, REDNESS, INFLAMATION, OR LEAKING.
--- NOTE | 2021-11-29 16:28 | NUR ---
11/29/21 162Ángel Erickson RECEIVING SCHEDULED ANTIBIOTICS. DALTONO 1500MG @0916 AND MILDRED 3.737G @ 1567
--- NOTE | 2021-11-29 18:53 | NUR ---
MR ARIAS RETURNED FROM OR TO MEDICAL UNIT AT 1800HRS. HE TRANSFERED INDEPENDENTLY OVER FROM [facility] TO BED. R FOOT BANDAGED, DRESSING CDI. R FOOT ELEVATED ON PILLOWS. PT PULSE PALPABLE AND STRONG. ABLE TO WIGGLE TOES, DENIES NUMBNESS OR TINGLING TO TOES. HE WAS GIVEN FENTANYL PRIOR TO TRANSFER TO MEDICAL UNIT AND GIVEN OXY PO HERE. HUNGRY, GIVEN MEAL TRAY, NO NAUSEA, ATE AND DRANK WELL. BED OLW, CALL LIGHT IN REACH.
--- NOTE | 2021-11-30 07:57 | NUR ---
ALMOND BLANCHER OPERATOR SUMMARY PATIENT IS A&OX4, VITAL SIGNS UNCHANGED FROM PREVIOUS TO SURGERY. SALVADOR'S DIASTOLIC BLOOD PRESSURE STILL RUNNING 90'S TO 105. RIGHT FOOT DRESSING INTACT, TOES WARM AND VERY SENSITIVE TO LIGHT TOUCH. POST TIB PULSES PALPABLE. DRESSING REMAINS CLEAN DRY AND INTACT. PAIN IS WELL MANAGED USING COMBINATION OF MEDS AVAILABLE ON PATIENT'S APR.
[2021-11-30 08:57] LABS: Vancomycin, Trough 11.7 ug/mL (5.0-10.0)
--- NOTE | 2021-11-30 11:57 | NUR ---
AM NOTE MR ARIAS HAS BEEN RESTING IN BED, R FOOT WITH SURGICAL DRESSING IN PLACE, ELEVATED ON PILLOW. NO EXUDATE THROUGH TO EXTERIOR DRESSING, UNDISTURBED. PAIN DESCRIBED THROBBING, HELPED WITH MEDICATIONS AND ELEVATION. TOES WARM, ABLE TO WIGGLE TOES, PT SAID HE HAS GOOD SENSATION TO TOES. PT SAID HE HAS NO PCP, THAT HE HAS BEEN WITHOUT INSURANCE SO HAS NOT BEEN TESTING BLOOD GLUCOSE LEVELS AT HOME OR TAKING MEDICATIONS. HE SAID THAT HE UNDERSTANDS IMPORTANCE OF ESTABLISHING PCP. HE TALKED WITH RN HOME HEALTH YESTERDAY. HE WOULD LIKE TO TALK WITH RETAIL LOSS PREVENTION OFFICER, MESSAGE LEFT. BED LOW, CALL LIGHT IN REACH.
--- NOTE | 2021-11-30 17:52 | NUR ---
SHIFT SUMMARY MR ARIAS HAS BEEN RESTING WITH FOOT ELEVATED TODAY. NOW PAIN IS 5/10 TO R FOOT (AT ACCEPTABLE PAIN RANGE TO PT). MOSTLY CONTROLLED ON OXY PO, SOME IV FOR BREAKTHROUGH PAIN. HE SAID THAT HE AMBULATED IN TO THE BATHROOM AND THAT FOOT WAS LESS PAINFUL THAN PRIOR TO SURGERY. DRESSING LEFT UNDISTRURBED, KATHLEEN WRAP CDI. GOOD CSM TO TOES. ELEVATION OF R FOOT ENCOURAGED. BED LOW, CALL LIGHT IN REACH.
--- NOTE | 2021-12-01 06:21 | NUR ---
NIGHTSHIFT SUMMARY Patient AOx4, resting in bed, right foot elevated. Patient reporting severe pain in foot, pain worsens when weight bearing. Pain managed with IV Toradol & PO Oxycodone. Right foot wrapped w/ kerlix & shira wrap. Bilat LE CMS intact. Blood sugars WNL, vitals stable, afebrile. IV Zoysn administred Q6H. Will continue to monitor.
--- NOTE | 2021-12-01 08:39 | NUR ---
RN NOTE BG [address] TOWNSEND NOTIFIED AND GLUCOTROL XL DISCONTINUED PER TELEPHONE ORDER. CONTINUE GLUCOPHAGE.
--- NOTE | 2021-12-01 12:25 | NUR ---
RN NOTE MR BUITRAGO HAS NOT WANTED ANY PAIN MEDICATIONS SO FAR THIS SHIFT. HE SAID THAT HIS PAIN IS BETTER CONTROLLED. HE HAS BEEN UP TO THE BATHROOM AND RECLINER SET UP FOR HIM, ENCOURAGED TO GET UP OUT OF BED. SEEN BY SURGEON AND DRESSING CHANGE DONE WITH PLAN FOR WOUND VAC 12/02/21. DISCUSSED DIET AND DIABETIC EDUCATION/ S&S HYPOGLYCEMIA WITH PT. COSTUME DESIGNER CONSULT IN CHART AND PT VERY INTERESTED IN EDUCATION. HE DID SAY THAT HE HAD RECENT MAJOR WEIGHT LOSS AND IMPROVEMENT IN DIET BUT THAT HE'S STILL EATING CHOCOLATE BARS HERE IN THE HOSPITAL, DESPITE WELL CONTROLLED BLOOD SUGARS. DISCUSSED WITH PT EFFECTS OF HIGH SUGAR SNACKS ON BLOOD SUGAR. BED LOW, CALL LIGHT IN REACH.
--- NOTE | 2021-12-01 19:38 | NUR ---
SHIFT SUMMARY MR ARIAS HAS NOT HAD MUCH PAIN TODAY. REQUIRING ONLY TYLENOL TO KEEP PAIN BELOW ACCEPTABLE LEVEL. MD REDRESSED RIGHT FOOT AND ORDER PLACED FOR WOUND VAC BY WOUND CARE NURSE TOMORROW 12/02/21. PT HAS BEEN ABLE TO AMBULATE INTO THE BATHROOM INDEPENDENTLY WITH MINIMAL PAIN. FOOT ELEVATED. GOOD CSM TO TOES.
--- NOTE | 2021-12-02 04:52 | NUR ---
SHIFT SUMMARY PT HAS NO COMPLAINTS AT THIS TIME. PT SLEPT MUCH OF THE NIGHT. PT TO GET WOUND VAC THIS MORNING. CALL LIGHT WITHIN HIS REACH.
--- NOTE | 2021-12-02 08:00 | NUR ---
pt laying in bed watching tv, sat himself up to take his po meds, a/ox3, pleasnant and cooperative with care, follows commands well, reports pain at 7/10 and is ok there, lungs clear, r/a, hrr, no edema, iv site clear and patent, voids without diff, skin has wound to right foot, dressing in place, blanca encinas, call light in reach.
--- NOTE | 2021-12-02 18:08 | NUR ---
pt waiting for home wound vac, probably go home tomorrow, uneventful day, did have a shower, in good spirits, no acute changes this shift, call light in reach.
[2021-12-03 04:43] LABS: Hematocrit 38.7 % (37.0-53.0); Hemoglobin 12.8 g/dL (13.5-17.5); Mean Corpuscular HGB 27.9 pg (26.0-34.0); Mean Corpuscular HGB Conc 33.1 g/dL (31.5-36.5); Mean Corpuscular Volume 85 fL (80-100); Mean Platelet Volume 8.8 fL (9.1-12.4); Platelet Count 281 K/mm3 (150-400); RDW Standard Deviation 43.1 fL (35.1-46.3); Red Blood Cell Count 4.58 M/mm3 (4.30-5.90); White Blood Cell Count 4.02 K/mm3 (4.00-11.30)
--- NOTE | 2021-12-03 05:18 | NUR ---
BARKING MACHINE FEEDER SUMMARY: A&Ox4. PLEASANT AND COOPERATIVE WITH CARE. HYPERTENSIVE LAST NIGHT, WHICH APPEARS TO BE BASELINE FOR HIM WITH DBP >100. C/O RESTLESSNESS AND INABILITY TO SLEEP LAST NIGHT. ADMINISTERED APAP & TORADOL FOR PAIN AND PT SLEPT MAJORITY OF THE NIGHT. HS GLUCOSE 110. PLAN FOR WOUND VAC PLACEMENT AND DC TODAY, PENDING INSURANCE APPROVAL. WILL REPORT TO ONCOMING RN.
--- NOTE | 2021-12-03 16:24 | NUR ---
WOUND VAC APPLIED. VAC SET TO CONTINUOUS 120 MMHG. ONE PIECE OF BLACK FOAM APPLIED. PT TOLERATED WELL
--- NOTE | 2021-12-03 17:25 | NUR ---
SHIFT SUMMARY PT ASKING MULTIPLE TIMES IF HE GETS TO GO HOME TODAY. REMINDED OF WAIT FOR PRIOR AUTH FOR HOME WOUND VAC. CLIENT SALES AND SERVICE OFFICER AWARE OF PTS EXTREME WISH TO GO HOME GAIL. POTENTIAL TO GO HOME TOMORROW. WOUND VAC FOR HOSPTICAL PLACED THIS MORNING. REPORTS INCREASED PAIN DUE TO DRESSING APPLIED. INDEPENDENT IN ROOM. BLOOD SUGARS ALL UNDER 100. COOPERATIVE AND CONSIDERATE WITH STAFF.
--- NOTE | 2021-12-04 04:42 | NUR ---
NETWORK OPERATIONS LEAD SUMMARY: A&Ox4. PLEASANT AND COOPERATIVE WITH CARE. INDEPENDENT WITHIN ROOM. VSS; DBP CONTINUES TO BE ESCALATED. SECOND DOSE LISINOPRIL STARTED LAST NIGHT. PRN TORADOL GIVEN x1 PRIOR TO BED AND PT SLEPT T/O THE NIGHT. WOUND VAC PATENT WITHOUT OCCLUSIONS. ANTICIPATE DC HOME TODAY AFTER AUTHORIZATION FOR HOME WOUND VAC. WILL REPORT TO ONCOMING RN.
[2021-12-04] MEDS ORDERED: Acetaminophen325 M1 PO (11:12)
[2021-12-04] MEDS ORDERED: AMOCLA875 PO (11:13)
[2021-12-04] MEDS ORDERED: METF500 PO (11:13)
[2021-12-04] MEDS ORDERED: Prinivil10 MG PO (11:13)
[2021-12-04] MEDS ORDERED: VISBIOME 112.51 EACH PO (11:13)
[2021-12-04] MEDS ORDERED: LEVFLO500 PO (11:13)
[2021-12-04] MEDS ORDERED: Percocet 5-3251 EACH PO (11:14)
--- NOTE | 2021-12-04 13:02 | NUR ---
DISCHARGE INSTRUCTIONS COMPLETED AND DISCUSSED WITH PT EXPRESSING UNDERSTANDING. HARD SCRIPT FOR PERCOCET GIVEN TO PT-PLACED IN DISCHARGE FOLDER. WOUND VAC CHANGED TO PORTABLE WOUND VAC. TO CURB VIA W/C.
== END 2021-12-04 12:54 | disposition home health service (06) | DRG 981 ==
LOC: ER 21:50 → SURS 11-29 02:54 → MEDS 11-29 02:54
PROVIDERS: Family Medicine; Internal Medicine; Podiatrist Foot & Ankle Surgery; Student in an Organized Health Care Education/Training Program; ADMIT Internal Medicine
PROC: 0J9Q0ZZ Drainage of Right Foot Subcutaneous Tissue and Fascia, Open Approach (ICD-10-PCS; 2021-11-29)
PROC: 0LBV0ZZ Excision of Right Foot Tendon, Open Approach (ICD-10-PCS; principal; 2021-11-29 14:00)
DX: E11.52 Type 2 diabetes mellitus with diabetic peripheral angiopathy with gangrene (principal); A48.0 Gas gangrene; I10 Essential (primary) hypertension; G47.30 Sleep apnea, unspecified; M06.9 Rheumatoid arthritis, unspecified; F17.210 Nicotine dependence, cigarettes, uncomplicated; E11.621 Type 2 diabetes mellitus with foot ulcer; Z91.14 Patient's other noncompliance with medication regimen; L97.519 Non-pressure chronic ulcer of other part of right foot with unspecified severity; J43.9 Emphysema, unspecified; B95.0 Streptococcus, group A, as the cause of diseases classified elsewhere; B95.2 Enterococcus as the cause of diseases classified elsewhere; Z96.643 Presence of artificial hip joint, bilateral; Z98.890 Other specified postprocedural states; Z91.018 Allergy to other foods; Z88.8 Allergy status to other drugs, medicaments and biological substances; Z79.2 Long term (current) use of antibiotics; Z79.899 Other long term (current) drug therapy
CPT/HCPCS: 0241U; 36415; 73701; 80053; 80202; 82947; 83036; 83605; 85025; 85027; 85651; 86140; 87040; 87070; 87075; 87077; 87147; 87186; 87205; 88305; 94760; 96365-59; 96367; 99285-25; A9270; J1100; J1650; J1815; J1885; J2250; J2405; J2543; J2704; J2795; J3010; J3370; J7030; J7050; J7120; Q9967

== ENCOUNTER 2021-12-06 07:26 | Day surgery (SDC) | payer OTHER ==
[~2021-12-06 07:26] MED LIST changes: +AMOCLA875 PO; +Acetaminophen325 M1 PO; +LEVFLO500 PO; +METF500 PO; +Prinivil10 MG PO; +VISBIOME 112.51 EACH PO
== END 2021-12-06 23:42 | disposition home or self-care (01) ==
LOC: WOUND 07:26
DX: E11.621 Type 2 diabetes mellitus with foot ulcer (principal); L97.515 Non-pressure chronic ulcer of other part of right foot with muscle involvement without evidence of necrosis; T24.211D Burn of second degree of right thigh, subsequent encounter; T21.29XD Burn of second degree of other site of trunk, subsequent encounter; I10 Essential (primary) hypertension; F17.200 Nicotine dependence, unspecified, uncomplicated; E11.40 Type 2 diabetes mellitus with diabetic neuropathy, unspecified; M06.9 Rheumatoid arthritis, unspecified; M10.9 Gout, unspecified; Z88.8 Allergy status to other drugs, medicaments and biological substances
CPT/HCPCS: 99406; A9270; G0463

== ENCOUNTER 2022-04-03 04:20 | Inpatient (IN) | payer OTHER ==
[~2022-04-03] VITALS: Ht 188 cm; Wt 112.2 kg
[2022-04-03 04:58] LABS: BASOPHILS ABSOLUTE AUTO 0.02 K/mm3 (0.00-0.23); BASOPHILS PERCENT AUTO 0 % (0-2); EOSINOPHILS ABSOLUTE AUTO 0.02 K/mm3 (0.00-0.68); EOSINOPHILS PERCENT AUTO 0 % (0-6); Hemoglobin 14.5 g/dL (13.5-17.5); IMMATURE GRAN ABSOLUTE AUTO 0.05 K/mm3 (0.00-0.10); IMMATURE GRAN PERCENT AUTO 1 % (0-1); LYMPHOCYTES ABSOLUTE AUTO 1.02 K/mm3 (0.84-5.20); LYMPHOCYTES PERCENT AUTO 11 % (21-46); MONOCYTES ABSOLUTE AUTO 0.55 K/mm3 (0.16-1.47); MONOCYTES PERCENT AUTO 6 % (4-13); Mean Corpuscular HGB 28.4 pg (26.0-34.0); Mean Corpuscular HGB Conc 34.5 g/dL (31.5-36.5); Mean Corpuscular Volume 82 fL (80-100); Mean Platelet Volume 9.5 fL (9.1-12.4); NEUTROPHILS ABSOLUTE AUTO 7.39 K/mm3 (1.96-9.15); NEUTROPHILS PERCENT AUTO 82 % (41-73); Platelet Count 212 K/mm3 (150-400); RDW Coefficient Variation 13.5 % (11.7-14.2); RDW Standard Deviation 40.5 fL (35.1-46.3); Red Blood Cell Count 5.11 M/mm3 (4.30-5.90); White Blood Cell Count 9.05 K/mm3 (4.00-11.30)
[2022-04-03 05:30] LABS: Albumin, Blood 2.3 g/dL (3.4-5.0); Albumin/Globulin Ratio 0.3 (0.8-1.8); Bilirubin, Total 0.7 mg/dL (0.1-1.0); Bun/Creatinine Ratio 22.9 (12.0-20.0); Calcium, Blood 8.7 mg/dL (8.5-10.1); Creatinine, Blood 0.74 mg/dL (0.60-1.20); Globulin, Blood 6.7 g/dL (2.2-4.0); Potassium, Blood 3.8 mmol/L (3.5-5.5)
[2022-04-03 07:29] LABS: Influenza A, PCR NEGATIVE (NEGATIVE); Influenza B, PCR NEGATIVE (NEGATIVE); Resp Syncytial Virus, PCR NEGATIVE (NEGATIVE); SARS-Cov-2 (COVID-19) PCR, MMC NEGATIVE (NEGATIVE)
[2022-04-03 18:05] LABS: U Amphetamine Screen DETECTED; U Barbituate Screen Not Detected; U Benzodiazapine Screen Not Detected; U Buprenorphine Screen Not Detected; U Cannabinoids Screen DETECTED; U Cocaine Screen Not Detected; U Methadone Screen Not Detected; U Methamphetamine Screen DETECTED; U Opiates Screen Not Detected; U Oxycodone Screen Not Detected; U Phencyclidine Screen Not Detected; U Propoxyphene Screen Not Detected
--- NOTE | 2022-04-03 22:11 | NUR ---
PATIENT IS A NEW ADMIT FROM THE ED. AXOX 4 ARRIVED VIA W/C. INDEPENDENT TO BED. ON ROOM AIR. ORIENTED TO ROOM AND CALL LIGHT SYSTEM. DR. VALADEZ ([facility]) INTO ROOM FOR CONSULT. REPORTS NO SURGICAL INTERVENTIONS AT THIS TIME AND PROCEED WITH SCHEDULE ABXS. WILL ROUND Q1-2 DAYS. REPORTED RIGHT ARM PAIN. DENIES CHEST PAIN, SOB, AND N/V. REPORTS LIVES IN GREEN WITH SPOUSE. NO FAMILY PRESENT ON ADMIT. WCTM.
--- NOTE | 2022-04-03 22:53 | NUR ---
LAB REPORTS TWO POSITIVE BLOOD CULTURES: 1) GRAM POSITIVE COCCI IN CHAIN 2) GRAM POSITIVE DIPLOCOCCI IN CHAIN HOSPITALIST DR BUENO REPORTS IV VANCO AND ROCEPHEN IS ADEQUATE COVERAGE THAT PATIENT IS ON.
--- NOTE | 2022-04-04 04:17 | NUR ---
SHIFT SUMMARY PATIENT HAD NO ACUTE CHANGES. AXOX 4 AND INDEPENDENT IN ROOM. REPORTED RIGHT SHOULDER PAIN X TWO AND MEDICATED PER EMAR. PIV REMAINS INTACT. NS INFUSING AT 75 mL/HR. IV ABX INFUSED. DR VALADEZ IN ROOM FOR CONSULT. POSITIVE BLOOD CULTURES (SEE NOTE). VSS/AFEBRILE. EGG CRATE FOAM PROVIDED FOR EXTRA COMFORT SLEEPING PER PATIENT REQUEST. SLEPT MOST OF SHIFT WHEN PAIN MANAGED. COOPERATIVE WITH CARE. CALL LIGHT IN REACH. BED IN LOWEST POSITION. WILL CONTINUE TO MONITOR UNTIL DAY SHIFT NURSE ASSUMES CARE.
[2022-04-04 05:48] LABS: BASOPHILS ABSOLUTE AUTO 0.02 K/mm3 (0.00-0.23); BASOPHILS PERCENT AUTO 0 % (0-2); EOSINOPHILS ABSOLUTE AUTO 0.02 K/mm3 (0.00-0.68); EOSINOPHILS PERCENT AUTO 0 % (0-6); Hemoglobin 12.1 g/dL (13.5-17.5); IMMATURE GRAN ABSOLUTE AUTO 0.07 K/mm3 (0.00-0.10); IMMATURE GRAN PERCENT AUTO 1 % (0-1); LYMPHOCYTES ABSOLUTE AUTO 1.52 K/mm3 (0.84-5.20); LYMPHOCYTES PERCENT AUTO 20 % (21-46); MONOCYTES ABSOLUTE AUTO 0.69 K/mm3 (0.16-1.47); MONOCYTES PERCENT AUTO 9 % (4-13); Mean Corpuscular HGB 28.9 pg (26.0-34.0); Mean Corpuscular HGB Conc 35.6 g/dL (31.5-36.5); Mean Corpuscular Volume 81 fL (80-100); Mean Platelet Volume 9.8 fL (9.1-12.4); NEUTROPHILS ABSOLUTE AUTO 5.24 K/mm3 (1.96-9.15); NEUTROPHILS PERCENT AUTO 69 % (41-73); Platelet Count 229 K/mm3 (150-400); RDW Coefficient Variation 13.6 % (11.7-14.2); RDW Standard Deviation 40.2 fL (35.1-46.3); Red Blood Cell Count 4.18 M/mm3 (4.30-5.90); White Blood Cell Count 7.56 K/mm3 (4.00-11.30)
[2022-04-04 06:14] LABS: Bun/Creatinine Ratio 20.3 (12.0-20.0); Creatinine, Blood 0.69 mg/dL (0.60-1.20)
[2022-04-04 15:15] LABS: Vancomycin, Trough 14.2 ug/mL (5.0-10.0)
--- NOTE | 2022-04-04 19:54 | NUR ---
SHIFT SUMMARY MEDICATED FOR C/O R SHOULDER PAIN THROUGHOUT SHIFT, MEDICATED PER EMAR WITH GOOD RELIEF STATED BY PT. PT HAS HAD A FEVER THROUGHOUT SHIFT, TYLENOL GIVEN ORDERED. ANTI BIOTICS GIVEN ORDERED. IS INDEPENDENT IN THE ROOM FOR RESTROOM USE. MD ORDERED A CT SCAN OF UPPER SPINE. DONE. REPORT ON CHART. ORTHO MD IS CONSULTING. LAB RESULTS SHOW + BLOOD CX'S. MD AWARE. PT IS PLEASANT & COOPERATIVE WITH ALL CARE. NEW IV STARTED IN L FA FOR PT COMFORT. PT STATED L AC IV WAS PAINFUL. PT STATES IS COMFORTABLE AND CALL LIGHT WITHIN REACH.
--- NOTE | 2022-04-05 05:16 | NUR ---
SHIFT SUMMARY - PT CONTINUES WITH RIGHT SHOULDER PAIN - MEDICATED WITH IV MORPHINE, PT DECLINED PO PAIN MEDICATION OFFERRED. TEMPERATURE DOWN THIS AM - SEE VS. PT WAS UP TO BRP X1 LAST NOC WITH SBA, HOWEVER PT AGREEABLE TO URINAL AT BEDSIDE FOR HIS COMFORT LEVEL. NORMAL SALINE INFUSING AT 75 CC HOUR TO LEFT WRIST IV SITE WITHOUT COMPLICATIONS. PT HAS BEEN COOPERATIVE WITH CARE THROUGHOUT THE NIGHT. CALL LIGHT WITHIN REACH. PAS ON TO BLE. FLUIDS AT BEDSIDE. WILL CONTINUE TO MONITOR UNTIL AM SHIFT CHANGE.
[2022-04-05 05:32] LABS: Hematocrit 35.8 % (37.0-53.0); Hemoglobin 12.3 g/dL (13.5-17.5); Mean Corpuscular HGB Conc 34.4 g/dL (31.5-36.5); Mean Corpuscular Volume 81 fL (80-100); Platelet Count 266 K/mm3 (150-400); RDW Coefficient Variation 13.5 % (11.7-14.2); RDW Standard Deviation 40.5 fL (35.1-46.3); White Blood Cell Count 6.46 K/mm3 (4.00-11.30)
[2022-04-05 06:01] LABS: Calcium, Blood 8.2 mg/dL (8.5-10.1); Creatinine, Blood 0.67 mg/dL (0.60-1.20); Potassium, Blood 3.9 mmol/L (3.5-5.5)
[2022-04-05 15:44] LABS: Vancomycin, Trough 17.1 ug/mL (5.0-10.0)
[2022-04-07 05:01] LABS: Hematocrit 41.2 % (37.0-53.0); Hemoglobin 13.6 g/dL (13.5-17.5); Mean Corpuscular HGB 27.9 pg (26.0-34.0); Mean Corpuscular Volume 84 fL (80-100); Mean Platelet Volume 9.2 fL (9.1-12.4); Platelet Count 317 K/mm3 (150-400); RDW Coefficient Variation 13.3 % (11.7-14.2); RDW Standard Deviation 41.1 fL (35.1-46.3); Red Blood Cell Count 4.88 M/mm3 (4.30-5.90); White Blood Cell Count 4.64 K/mm3 (4.00-11.30)
--- NOTE | 2022-04-07 05:20 | NUR ---
SHIFT SUMMARY PT RESTED WELL T/O NIGHT. AAOX4. RIGHT SHOULDER DISCOMFORT DECREASED WITH 4MG IV MORPHINE X2 THIS SHIFT. NO NAUSEA/EMESIS. RIGHT SHOULDER PAINFUL TO MOVE, PT REPORTING "ITS A LOT BETTER THEN A FEW DAYS AGO." PT INDEPENDENT IN ROOM, UNMEASURED URINE OUTPUT. STOOL SOFTNERS GIVEN PER ORDERS PT REPORTS DIFFICULTY WITH BOWEL MOVEMENTS. ADA WITH AC+HS CHEMBGs. NO ACUTE CHANGES OVER NIGHT. AWAITING LAB RESULTS THIS AM. PT CURRENTLY RESTING IN BED WITH CALL LIGHT IN REACH.
[2022-04-07 05:22] LABS: Bun/Creatinine Ratio 22.9 (12.0-20.0); Calcium, Blood 8.3 mg/dL (8.5-10.1); Creatinine, Blood 0.57 mg/dL (0.60-1.20); Potassium, Blood 4.3 mmol/L (3.5-5.5)
--- NOTE | 2022-04-07 19:07 | NUR ---
Received report from ongoing nurse. Pt resting comfortably in bed. axox4. VSS.
--- NOTE | 2022-04-08 07:20 | NUR ---
Shift Summary Pt c/o R shoulder pain, stated he wanted to get off of morphine. Requested Toridol once near end of shift. Slept wel t/o most of the night. Pt states ROM w/o pain in R shoulder is improved this AM. VSS, AOX4, pleasant and cooperative.
--- NOTE | 2022-04-09 00:17 | NUR ---
R FOOR WOUND DRESSING CHANGE Dressing changed and wound cleaned for pt's R foot 04/09/22 at 0015. Dressing is zeroform with transparent adhesive cover. No S/S of infection.
--- NOTE | 2022-04-09 06:31 | NUR ---
Shift Summary Pt c/o 10/02 shoulder pain, IV Toradol was d/c, pt requested 2 mg IV morphine which is available Q4 on EMAR. Pt states pain is managed to an acceptable level. Changed R foot dressing and cleansed wound, no s/sx of infection. Pt NPO as of 0000 pending shoulder surgery today. Slept well t/o the night. AOx4, VSS, pleasant and cooperative with care.
--- NOTE | 2022-04-09 14:11 | NUR ---
THE PATIENT WAS BROUGHT TO DAY SURGERY FOR HIS PROCEDURE.
--- NOTE | 2022-04-10 03:15 | NUR ---
SHIFT SUMMARY NOC PT A/O X 4. PT HAD R SHOULDER ABCESS DRAINED AND HAS YOGI DRAIN IN PLACE WITH C/D/I DRESSING IN PLACE. PT HAD C/O R SHOULDER PAIN AND WAS MEDICATED PER EMAR X 1. PT D/C IS TO RECEIVE 6 WEEKS OF OUTPATIENT IV ABX TREATMENT AT [facility]. PT WAS PLEASANT AND COOPERATIVE WITH CARE. PT IS CURRENTLY RESTING WITH BED IN LOWEST POSITION, AND CALL LIGHT WITHIN REACH. TM.
[2022-04-10 05:47] LABS: BASOPHILS ABSOLUTE AUTO 0.01 K/mm3 (0.00-0.23); BASOPHILS PERCENT AUTO 0 % (0-2); EOSINOPHILS ABSOLUTE AUTO 0.01 K/mm3 (0.00-0.68); EOSINOPHILS PERCENT AUTO 0 % (0-6); Hematocrit 39.5 % (37.0-53.0); Hemoglobin 13.3 g/dL (13.5-17.5); IMMATURE GRAN ABSOLUTE AUTO 0.02 K/mm3 (0.00-0.10); IMMATURE GRAN PERCENT AUTO 0 % (0-1); LYMPHOCYTES ABSOLUTE AUTO 1.38 K/mm3 (0.84-5.20); LYMPHOCYTES PERCENT AUTO 21 % (21-46); MONOCYTES ABSOLUTE AUTO 0.38 K/mm3 (0.16-1.47); MONOCYTES PERCENT AUTO 6 % (4-13); Mean Corpuscular HGB 28.2 pg (26.0-34.0); Mean Corpuscular HGB Conc 33.7 g/dL (31.5-36.5); Mean Corpuscular Volume 84 fL (80-100); NEUTROPHILS PERCENT AUTO 72 % (41-73); Platelet Count 450 K/mm3 (150-400); RDW Coefficient Variation 13.5 % (11.7-14.2); RDW Standard Deviation 41.3 fL (35.1-46.3); Red Blood Cell Count 4.72 M/mm3 (4.30-5.90)
[2022-04-10 17:10] LABS: Bun/Creatinine Ratio 31.5 (12.0-20.0); Calcium, Blood 8.7 mg/dL (8.5-10.1); Creatinine, Blood 0.73 mg/dL (0.60-1.20); Potassium, Blood 4.8 mmol/L (3.5-5.5)
--- NOTE | 2022-04-10 17:31 | NUR ---
SHIFT SUMMARY: PT A&O X4. HAS BEEN PLEASANT AND COOPERATIVE THIS SHIFT. PT INDEPENDENT IN ROOM AND CALLS APPROPRIATELY. R. SHOULDER ABCESS DRAINED W/YOGI IN PLACE. DRESS C/D/I. PT C/O PAIN TWICE THIS SHIFT. MEDICATED PER EMAR. IV IN LFA INFILTRATED. NEW IV PLACED BY CHARGE NURSE IN RFA. PATENT AND FLUSHING W/O COMPLICATIONS. PT HAS NOT NEEDED INSULIN COVERAGE THIS SHIFT. PLAN IS FOR PT TO RECEIVE 6 WEEKS OF ANTIBIOTIC THERAPY THROUGH INFUSION. CALL LIGHT IN REACH. WILL CONTINUE TO MONITOR.
--- NOTE | 2022-04-11 07:20 | NUR ---
SALVADOR SLEPT MOST OF THE NIGHT AWAY. PAIN WITH MINIMAL MOVEMENT WAS 8-9. AND DROPPED TO A TOLERABLE LEVEL WITH 4MG IV MORPHINE. RIGHT SHOULDER DRESSING WAS CHANGED WHEN PATIENT GOT OOB AND HE BEGAN BLEEDING DOWN HIS CHEST. MORPHINR WAS GIVEN AND DRESSING REMOVED EXCEPT FOR BOTTOM LAYER YELLOW PETROLEUM GAUZE WHICH WAS STUCK TO THE SUTURES. A LITTLE HEAVIER PETROLATUM GAUZE WAS PLACED OVER IT HOPING TO LOOSEN THE ORIGINAL PIECE FROM HIS SUTURES WITHOUT DISLODGING THEM
[2022-04-11] MEDS ORDERED: Acetaminophen325 M1 PO ×2 (13:01)
[2022-04-11] MEDS ORDERED: CEFTRIAXONE2 G1 IV ×2 (13:01)
[2022-04-11] MEDS ORDERED: DOCUZEN 8.6-501 EACH PO ×2 (13:03)
[2022-04-11] MEDS ORDERED: Prinivil10 MG PO ×2 (13:03)
[2022-04-11] MEDS ORDERED: VISBIOME 112.51 EACH PO ×2 (13:04)
[2022-04-11] MEDS ORDERED: FAMO20 PO ×2 (13:05)
[2022-04-11] MEDS ORDERED: CELE100 PO ×2 (13:05)
--- NOTE | 2022-04-11 13:57 | NUR ---
DISCHARGE: PT D/C AT 1530 WITH FRIEND. IV TAKEN OUT W/O COMPLICATIONS. LAST DOSE OF ROCEPHIN GIVEN EARLY DUE TO NOT BEING ABLE TO SEE WOUND CLINIC UNTIL 1100 TOMORROW AM. PT NOTIFIED AND AWARE OF WHERE TO GO IN HOSPITAL TOMORROW FOR ABX. CALLED DR. VALADEZ OFFICE TO [facility] FOR APRIL 24 @5162. PT TALKED TO PHARMACIST ABOUT NEW MEDICATIONS. MEDICATIONS FAXED TO [facility] IN [place]. YOGI DRAIN REMOVED BY DOCTOR THIS AM.
== END 2022-04-11 13:33 | disposition home or self-care (01) | DRG 464 ==
LOC: ER 04:20 → MEDS 15:15 → ERHOLD 15:15 → MEDS 20:40
PROVIDERS: Internal Medicine; Nurse Practitioner Acute Care; Orthopaedic Surgery; Student in an Organized Health Care Education/Training Program; ADMIT Internal Medicine
PROC: 0R9J3ZZ Drainage of Right Shoulder Joint, Percutaneous Approach (ICD-10-PCS; 2022-04-03)
PROC: 0R9J0ZZ Drainage of Right Shoulder Joint, Open Approach (ICD-10-PCS; 2022-04-09)
PROC: 0JBD0ZZ Excision of Right Upper Arm Subcutaneous Tissue and Fascia, Open Approach (ICD-10-PCS; principal; 2022-04-09 14:00)
DX: M00.211 Other streptococcal arthritis, right shoulder (principal); E87.1 Hypo-osmolality and hyponatremia; L03.113 Cellulitis of right upper limb; R78.81 Bacteremia; L02.413 Cutaneous abscess of right upper limb; F32.A Depression, unspecified; R07.9 Chest pain, unspecified; S46.911A Strain of unspecified muscle, fascia and tendon at shoulder and upper arm level, right arm, initial encounter; E11.9 Type 2 diabetes mellitus without complications; G47.33 Obstructive sleep apnea (adult) (pediatric); I10 Essential (primary) hypertension; M06.9 Rheumatoid arthritis, unspecified; F17.210 Nicotine dependence, cigarettes, uncomplicated; M60.811 Other myositis, right shoulder; B95.0 Streptococcus, group A, as the cause of diseases classified elsewhere; Z20.822 Contact with and (suspected) exposure to COVID-19; X58.XXXA Exposure to other specified factors, initial encounter; Z91.018 Allergy to other foods; Z88.8 Allergy status to other drugs, medicaments and biological substances; Z86.79 Personal history of other diseases of the circulatory system
CPT/HCPCS: 0241U; 20611; 36415; 71046; 72129; 73030; 73201; 73223; 80048; 80053; 80202; 82947; 83605; 83880; 84145; 84484; 85025; 85027; 85651; 86140; 87040; 87070; 87075; 87147; 87205; 93005; 93010; 96361-59; 96365-59; 96366-59; 96375-59; 96376-59; 99285-25; A9270; A9579; J0696; J1100; J1170; J1885; J2270; J2405; J2704; J3010; J3370; J7030; J7050; J7120; Q9967

== ENCOUNTER 2022-04-12 00:16 | Day surgery (SDC) | payer OTHER ==
[~2022-04-12 00:16] MED LIST changes: +CEFTRIAXONE2 G1 IV; +CELE100 PO; +DOCUZEN 8.6-501 EACH PO; +FAMO20 PO
== END 2022-04-12 22:34 | disposition home or self-care (01) ==
LOC: ATC 00:16
DX: M00.811 Arthritis due to other bacteria, right shoulder (principal); E11.9 Type 2 diabetes mellitus without complications; I10 Essential (primary) hypertension; F32.A Depression, unspecified; F17.210 Nicotine dependence, cigarettes, uncomplicated; G47.33 Obstructive sleep apnea (adult) (pediatric); Z99.89 Dependence on other enabling machines and devices; Z88.8 Allergy status to other drugs, medicaments and biological substances; Z79.891 Long term (current) use of opiate analgesic; Z79.899 Other long term (current) drug therapy
CPT/HCPCS: J0696

== ENCOUNTER 2022-04-13 00:11 | Day surgery (SDC) | payer OTHER | END 2022-04-13 22:41 | disposition home or self-care (01) | LOC: ATC 00:11 | DX: M00.811 Arthritis due to other bacteria, right shoulder (principal); E11.9 Type 2 diabetes mellitus without complications; I10 Essential (primary) hypertension; F32.A Depression, unspecified; F17.210 Nicotine dependence, cigarettes, uncomplicated; Z88.8 Allergy status to other drugs, medicaments and biological substances; Z79.899 Other long term (current) drug therapy | CPT/HCPCS: J0696 ==

== ENCOUNTER 2022-04-14 00:07 | Day surgery (SDC) | payer OTHER | END 2022-04-14 22:48 | disposition home or self-care (01) | LOC: ATC 00:07 | DX: M00.811 Arthritis due to other bacteria, right shoulder (principal) | CPT/HCPCS: J0696 ==

== ENCOUNTER 2022-10-10 03:46 | Emergency (ER) | payer OTHER ==
[~2022-10-10] VITALS: Ht 185.4 cm; Wt 113.4 kg
[2022-10-10 04:32] LABS: BASOPHILS ABSOLUTE AUTO 0.01 K/mm3 (0.00-0.23); BASOPHILS PERCENT AUTO 0 % (0-2); EOSINOPHILS ABSOLUTE AUTO 0.11 K/mm3 (0.00-0.68); EOSINOPHILS PERCENT AUTO 2 % (0-6); Hematocrit 35.6 % (37.0-53.0); Hemoglobin 11.4 g/dL (13.5-17.5); IMMATURE GRAN ABSOLUTE AUTO 0.02 K/mm3 (0.00-0.10); IMMATURE GRAN PERCENT AUTO 0 % (0-1); LYMPHOCYTES ABSOLUTE AUTO 1.12 K/mm3 (0.84-5.20); LYMPHOCYTES PERCENT AUTO 22 % (21-46); MONOCYTES ABSOLUTE AUTO 0.19 K/mm3 (0.16-1.47); MONOCYTES PERCENT AUTO 4 % (4-13); Mean Corpuscular Volume 84 fL (80-100); Mean Platelet Volume 8.6 fL (9.1-12.4); NEUTROPHILS ABSOLUTE AUTO 3.56 K/mm3 (1.96-9.15); NEUTROPHILS PERCENT AUTO 71 % (41-73); Platelet Count 390 K/mm3 (150-400); RDW Coefficient Variation 14.3 % (11.7-14.2); Red Blood Cell Count 4.22 M/mm3 (4.30-5.90); White Blood Cell Count 5.01 K/mm3 (4.00-11.30)
[2022-10-10 05:25] LABS: Albumin, Blood 2.7 g/dL (3.4-5.0); Albumin/Globulin Ratio 0.5 (0.8-1.8); Bilirubin, Total 0.2 mg/dL (0.1-1.0); Bun/Creatinine Ratio 24.6 (12.0-20.0); C-Reactive Protein, High Sens. 46.7 mg/L (0.000-3.000); Calcium, Blood 8.3 mg/dL (8.5-10.1); Creatinine, Blood 0.77 mg/dL (0.60-1.20); Globulin, Blood 5.5 g/dL (2.2-4.0); Potassium, Blood 4.1 mmol/L (3.5-5.5); Total Protein, Blood 8.2 g/dL (6.4-8.2)
[2022-10-10] MEDS ORDERED: COLCHICINE0.6 MG PO (05:34)
[2022-10-10] MEDS ORDERED: PRED20 PO (05:34)
[2022-10-10 06:16] VITALS: BP 140/102
== END 2022-10-10 06:12 | disposition home or self-care (01) ==
LOC: ER 03:46
PROVIDERS: Emergency Medicine
DX: R07.2 Precordial pain (principal); I31.9 Disease of pericardium, unspecified; I10 Essential (primary) hypertension; E11.9 Type 2 diabetes mellitus without complications; F17.210 Nicotine dependence, cigarettes, uncomplicated; Z91.018 Allergy to other foods; Z88.8 Allergy status to other drugs, medicaments and biological substances; Z79.899 Other long term (current) drug therapy
CPT/HCPCS: 71045; 80053; 83880; 84484; 85025; 85651; 86141; 93005; 93010; 96361; 96374; 96375; 99284-25; A9270; J1100; J1885; J7030

== ENCOUNTER 2024-06-14 22:23 | Inpatient (IN) | payer OTHER ==
[~2024-06-14] VITALS: Ht 182.9 cm; Wt 123.7 kg
[2024-06-14] MEDS ORDERED: NS 1,000 ML IV SCH (22:45)
[2024-06-14 22:46] LABS: BASOPHILS PERCENT AUTO 0 % (0-2); EOSINOPHILS ABSOLUTE AUTO 0.04 K/mm3 (0.00-0.68); EOSINOPHILS PERCENT AUTO 1 % (0-6); Hematocrit 35.2 % (37.0-53.0); Hemoglobin 11.6 g/dL (13.5-17.5); IMMATURE GRAN ABSOLUTE AUTO 0.04 K/mm3 (0.00-0.10); IMMATURE GRAN PERCENT AUTO 1 % (0-1); LYMPHOCYTES ABSOLUTE AUTO 1.21 K/mm3 (0.84-5.20); LYMPHOCYTES PERCENT AUTO 15 % (21-46); MONOCYTES ABSOLUTE AUTO 0.45 K/mm3 (0.16-1.47); MONOCYTES PERCENT AUTO 6 % (4-13); Mean Corpuscular Volume 82 fL (80-100); Mean Platelet Volume 8.4 fL (9.1-12.4); NEUTROPHILS ABSOLUTE AUTO 6.51 K/mm3 (1.96-9.15); NEUTROPHILS PERCENT AUTO 79 % (41-73); Platelet Count 250 K/mm3 (150-400); RDW Coefficient Variation 15.1 % (11.7-14.2); RDW Standard Deviation 45.2 fL (35.1-46.3); White Blood Cell Count 8.25 K/mm3 (4.00-11.30)
[2024-06-14 23:17] LABS: Alanine Aminotransfer (ALT/SGP 23 U/L (12-78); Albumin, Blood 2.4 g/dL (3.4-5.0); Albumin/Globulin Ratio 0.4 (0.8-1.8); Alk Phos 112 U/L (50-136); Anion Gap 10 mmol/L (3-11); Aspartate Aminotrans (AST/SGOT 44 U/L (12-37); Bilirubin, Total 0.7 mg/dL (0.1-1.0); Blood Urea Nitrogen 12 mg/dL (8-24); Bun/Creatinine Ratio 16.1 (12.0-20.0); CO2, Blood 22 mmol/L (21-32); Chloride, Blood 101 mmol/L (98-108); Creatinine, Blood 0.75 mg/dL (0.60-1.20); Ethanol (Alcohol), Blood, Med <3 mg/dL; Glomerular Filtration Rate 115 (60-); Glucose, Blood 197 mg/dL (70-99); Magnesium, Blood 1.5 mg/dL (1.6-2.4); Sodium, Blood 129 mmol/L (136-145); Total Protein, Blood 8.4 g/dL (6.4-8.2)
[2024-06-14 23:25] LABS: D-Dimer, Quantitative 3.04 mg/L FEU (0.00-0.52); International Normalized Ratio 1.07; Prothrombin Time Results 11.4 Sec (9.7-11.5)
[2024-06-14] MEDS ORDERED: Magnesium Sulf 2 GM/Water 50ML 50 ML IV ONE (23:55)
[2024-06-15] MEDS ORDERED: CefTRIAXone Sodium 2,000 MG in NS 100 ML IV ONE (00:05)
[2024-06-15] MEDS ORDERED: Cefepime HCl 2,000 MG in NS 100 ML IV ONE (00:10)
[2024-06-15] MEDS ORDERED: Ketorolac Tromethamine 30mg Vial IV ONE (01:10)
[2024-06-15] MEDS ORDERED: Ibuprofen 400 MG Tab PO PRN (02:15)
[2024-06-15] MEDS ORDERED: FentaNYL Citrate 50 MCG/ML 2 ML Injection IV ONE (02:15)
[2024-06-15] MEDS ORDERED: Magnesium Hydroxide Conc 10 ML UDC PO PRN (02:15)
[2024-06-15] MEDS ORDERED: Acetaminophen 325 MG TABLET PO PRN (02:20)
[2024-06-15] MEDS ORDERED: Metoclopramide HCl 5MG / ML 2ML Vial IV PRN (02:20)
[2024-06-15] MEDS ORDERED: Sodium Phosphate 20 MM in Dextrose 5% 500 ML IV STA (02:42)
[2024-06-15] MEDS ORDERED: Mag Sulfate 1 GM/D5% 100ML 100 ML IV STA (02:43)
[2024-06-15] MEDS ORDERED: Vancomycin HCL 2,000 MG in NS 500 ML IV ONE (02:50)
[2024-06-15] MEDS ORDERED: NS 1,000 ML IV SCH (03:00)
[2024-06-15 03:07] VITALS: BP 149/112
[2024-06-15 03:44] VITALS: BP 156/92
[2024-06-15 04:07] LABS: Influenza A, PCR NEGATIVE (NEGATIVE); Influenza B, PCR NEGATIVE (NEGATIVE); Resp Syncytial Virus, PCR NEGATIVE (NEGATIVE); SARS-Cov-2 (COVID-19) PCR, MMC NEGATIVE (NEGATIVE)
[2024-06-15] MEDS ORDERED: NS 250 ML IV PRN (04:15)
[2024-06-15 04:34] LABS: BASOPHILS ABSOLUTE AUTO 0.02 K/mm3 (0.00-0.23); BASOPHILS PERCENT AUTO 0 % (0-2); EOSINOPHILS ABSOLUTE AUTO 0.03 K/mm3 (0.00-0.68); EOSINOPHILS PERCENT AUTO 0 % (0-6); Hematocrit 33.4 % (37.0-53.0); Hemoglobin 11.2 g/dL (13.5-17.5); IMMATURE GRAN ABSOLUTE AUTO 0.09 K/mm3 (0.00-0.10); IMMATURE GRAN PERCENT AUTO 1 % (0-1); LYMPHOCYTES ABSOLUTE AUTO 1.18 K/mm3 (0.84-5.20); LYMPHOCYTES PERCENT AUTO 8 % (21-46); MONOCYTES ABSOLUTE AUTO 0.54 K/mm3 (0.16-1.47); MONOCYTES PERCENT AUTO 4 % (4-13); Mean Corpuscular HGB 27.6 pg (26.0-34.0); Mean Corpuscular HGB Conc 33.5 g/dL (31.5-36.5); Mean Corpuscular Volume 82 fL (80-100); Mean Platelet Volume 8.6 fL (9.1-12.4); NEUTROPHILS ABSOLUTE AUTO 13.71 K/mm3 (1.96-9.15); NEUTROPHILS PERCENT AUTO 88 % (41-73); Platelet Count 250 K/mm3 (150-400); RDW Coefficient Variation 15.3 % (11.7-14.2); RDW Standard Deviation 46.5 fL (35.1-46.3); RETICULOCYTE ABSOLUTE 0.0597 M/mm3 (0.0200-0.1100); RETICULOCYTE COUNT PERCENT 1.47 % (0.50-2.50); Red Blood Cell Count 4.06 M/mm3 (4.30-5.90); White Blood Cell Count 15.57 K/mm3 (4.00-11.30)
[2024-06-15 04:54] LABS: Source, Urine Clean Catch
[2024-06-15 05:06] LABS: Appearance, Urine Clear (Clear); Bilirubin, Urine Neg (Neg); Blood, Urine 3+ (Neg); Color, Urine Yellow (P-Yellow); Glucose Qualitative, Urine Neg (Neg); Ketones, Urine Neg (Neg); Leukocyte Esterase, Urine Neg (Neg); Nitrite, Urine Neg (Neg); Protein, Urine 4+ (Neg); Urobilinogen, Urine 1+ (Normal)
[2024-06-15 05:12] LABS: Bacteria Few /hpf; Squamous Epithelial Cells Rare /hpf (Few); White Blood Cells, Urine 0-2 /hpf (0-5)
[2024-06-15 05:17] LABS: U Amphetamine Screen DETECTED; U Barbituate Screen Not Detected; U Benzodiazapine Screen Not Detected; U Buprenorphine Screen Not Detected; U Cannabinoids Screen DETECTED; U Cocaine Screen Not Detected; U Methadone Screen Not Detected; U Methamphetamine Screen DETECTED; U Opiates Screen Not Detected; U Oxycodone Screen Not Detected; U Phencyclidine Screen Not Detected
[2024-06-15 05:21] LABS: Albumin, Blood 2.4 g/dL (3.4-5.0); Albumin/Globulin Ratio 0.4 (0.8-1.8); Bilirubin, Total 0.7 mg/dL (0.1-1.0); C-REACTIVE PROTEIN, EXT RANGE 13.6 mg/dL (0.000-0.300); Calcium, Blood 8.1 mg/dL (8.5-10.1); Creatinine, Blood 0.83 mg/dL (0.60-1.20); Globulin, Blood 5.7 g/dL (2.2-4.0); Percent Saturation 8.4 % (20.0-50.0); Potassium, Blood 3.9 mmol/L (3.5-5.5); Total Protein, Blood 8.1 g/dL (6.4-8.2)
--- NOTE | 2024-06-15 05:39 | NUR ---
PT ADMITTED TO ROOM PCU 7 FROM ED. PT ABLE TO STAND AND PIVOT TRANSFER TO BED FROM [facility]. PT'S ACCOMPANYIES PT TO ROOM. ADMIT TIME 0300. PT HAS BEEN VERY ANXIOUS AND SOMEWHAT IRRITABLE. HAS BEEN UP AND AMBULATES TO BATHROOM WHERE HE IS ABLE TO VOID 200 ML SHADIA COLORED URINE. PT HAS PERSISTANT COUGH. HE STATES THAT HE HAS BEEN COUGHING UP GREEN COLORED SECRETIONS. LOW GRADE FEVER NOTED. DID ADMINISTER 650 MG APAP WITH SOME IMPROVEMENT. PROVIDED HALF SANDWHICH, CHEESE, AND SUGAR FREE PUDDING FOR PT.
[2024-06-15] MEDS ORDERED: Insulin Human Lispro 100 Units/ML 3ML Syringe SC SCH (07:30)
[2024-06-15 08:21] VITALS: BP 132/83
[2024-06-15] MEDS ORDERED: Enoxaparin 40 MG/0.4 ML SYR SC SCH (09:00)
[2024-06-15] MEDS ORDERED: Lactobacil 2-S.Thermo-Bifido 1 1 Cap PO SCH (09:00)
[2024-06-15] MEDS ORDERED: Sennosides 8.6 MG Tab PO SCH (09:00)
[2024-06-15 11:40] VITALS: BP 128/97
[2024-06-15] MEDS ORDERED: Vancomycin HCL 1,500 MG in NS 250 ML IV SCH (13:00)
[2024-06-15] MEDS ORDERED: Cefepime HCl 2,000 MG in NS 100 ML IV SCH (13:00)
--- NOTE | 2024-06-15 14:53 | NUR ---
THIS RN CALLED DR. ALAN BECAUSE THE PT'S OXYGEN NEED GOING UP TO 3L WHILE AWAKE AND WHILE ASLEEP. HE HAS FLUID RUNNING PER APR. DR. ALAN STATED TO STOP THE 1L NS AT THIS TIME. ABOUT 500CC'S INFUSED FROM THE LITER ORDERED ON PREVIOUS SHIFT. WHILE ON THE PHONE WITH DR. ALAN, THIS RN LET THE PROVIDER KNOW THE DENTAL HYGENISTS RECCOMENDATIONS FOR TESFAYE'S MAGIC MOUTH WASH D/T MULTIPLE SORES IN THE MOUTH. TESFAYE'S MAGIC MOUTH WASH WAS ORDERED Q4. SEE NOTES FOR UPDATES.
[2024-06-15 15:33] VITALS: BP 141/98
[2024-06-15] MEDS ORDERED: Lidocaine 2% Viscous Soln 20 ML,Nystatin 100,000 Unit/ml Susp 20 ML,Mag Hydrox/Al Hydro... MT SCH (16:00)
--- NOTE | 2024-06-15 17:46 | NUR ---
END OF SHIFT SUMMARY THE PT HAS IS A&oX4, AND HAS BEEN NAPPING MAJORITY OF THE DAY. HE IS ACHS CBG'S. IS IS IND IN THE ROOM AND USES THE URINAL WHILE IN BED. HE HAS BEEN ST 90'S-120'S ON TELE AND BP STABLE. HE HAS BEEN BETWEEN RA--3L NC T/O THE SHIFT. THE PT STATES HE IS FEELING BETTER THIS AFTERNOON THAN HE DID THIS MORNING. STILL WAITING FOR A SPUTUM SAMPLE FOR THIS PT. FAMILY IN THE ROOM AND UPDATES ON CARE. SEE NOTES FOR UPDATES.
[2024-06-15 19:32] VITALS: BP 139/100
[2024-06-16 00:11] VITALS: BP 139/87
[2024-06-16 04:14] LABS: BASOPHILS ABSOLUTE AUTO 0.02 K/mm3 (0.00-0.23); BASOPHILS PERCENT AUTO 0 % (0-2); EOSINOPHILS ABSOLUTE AUTO 0.22 K/mm3 (0.00-0.68); EOSINOPHILS PERCENT AUTO 3 % (0-6); Hematocrit 35.2 % (37.0-53.0); Hemoglobin 11.4 g/dL (13.5-17.5); IMMATURE GRAN ABSOLUTE AUTO 0.05 K/mm3 (0.00-0.10); IMMATURE GRAN PERCENT AUTO 1 % (0-1); LYMPHOCYTES ABSOLUTE AUTO 1.26 K/mm3 (0.84-5.20); LYMPHOCYTES PERCENT AUTO 14 % (21-46); MONOCYTES ABSOLUTE AUTO 0.32 K/mm3 (0.16-1.47); MONOCYTES PERCENT AUTO 4 % (4-13); Mean Corpuscular HGB 26.9 pg (26.0-34.0); Mean Corpuscular HGB Conc 32.4 g/dL (31.5-36.5); Mean Corpuscular Volume 83 fL (80-100); Mean Platelet Volume 8.7 fL (9.1-12.4); NEUTROPHILS ABSOLUTE AUTO 7.07 K/mm3 (1.96-9.15); NEUTROPHILS PERCENT AUTO 79 % (41-73); Platelet Count 236 K/mm3 (150-400); RDW Coefficient Variation 15.4 % (11.7-14.2); RDW Standard Deviation 46.6 fL (35.1-46.3); Red Blood Cell Count 4.24 M/mm3 (4.30-5.90); White Blood Cell Count 8.94 K/mm3 (4.00-11.30)
[2024-06-16 04:42] LABS: Albumin, Blood 2.1 g/dL (3.4-5.0); Albumin/Globulin Ratio 0.4 (0.8-1.8); Bilirubin, Total 0.4 mg/dL (0.1-1.0); Bun/Creatinine Ratio 23.6 (12.0-20.0); Calcium, Blood 8.4 mg/dL (8.5-10.1); Creatinine, Blood 0.64 mg/dL (0.60-1.20); Globulin, Blood 5.7 g/dL (2.2-4.0); Potassium, Blood 3.8 mmol/L (3.5-5.5); Total Protein, Blood 7.8 g/dL (6.4-8.2)
--- NOTE | 2024-06-16 06:09 | NUR ---
SHIFT SUMMARY PATIENT ALERT, ORIENTED x4. ABLE TO MAKE NEEDS KNOWN. BP STABLE. ON RA WITH SPO2 >90%. PATIENT ON TELE SR-ST 90-100s. PATIENT USING URINAL ADEQUATE OUTPUT DURING THE NIGHT. SIGNIFICANT OTHER AT BEDSIDE ORDERING FOOD FOR PATIENT. TOLERATING PO. NO CHANGES, WILL REPORT TO DAY SHIFT RN.
[2024-06-16] MEDS ORDERED: Lactated Ringer's 1,000 ML IV SCH (07:00)
[2024-06-16 07:19] VITALS: BP 153/106
[2024-06-16] MEDS ORDERED: Lisinopril 10 MG Tab PO SCH (09:00)
--- NOTE | 2024-06-16 10:23 | NUR ---
am note this rn assumed care at 0700. vital signs stable. tele sinus rhythm 80s. patient is alert and oriented x4. neuro is intact. patient is able to make needs known and uses call light appropriately. patient denies pain, chest pain or pressure. patient reports shortness of breath with exertion. patient lung sounds upper lobes exp wheeze and coarse; lower lobes dim. see shift assessment for further detials. Md Germain in to see patient around 0730 and switched patient to medical status with tele. patient significant other at bedside. Plan to continue iv abx, 2 bags of LR, and to await the final results of blood cultures.
[2024-06-16 17:05] VITALS: BP 156/105
--- NOTE | 2024-06-16 18:29 | NUR ---
shift summary vital signs stable. no acute changes this shift. plan of care is up to date. patient had a shower and linen change today. independent in the room and with adls. plan remains up to date
[2024-06-16 20:03] VITALS: BP 150/96
[2024-06-16 20:06] LABS: HEPATITIS C AB CIA INTERP Negative (Negative); HEPATITIS C ANTIBODY CIA INDEX 0.24 IV
[2024-06-17 03:12] VITALS: BP 154/112
--- NOTE | 2024-06-17 05:24 | NUR ---
SHIFT SUMMARY PT ALERT AND ORIENTED X4. ABLE TO MAKE NEEDS KNOWN. ON TELE, SR 80S-90S. BP MILDLY ELEVATED. SPOS >95% ON RA. PT USING URINAL INDEPENDENTLY WITH ADEQUATE OUTPUT DURING THE NIGHT. TOLERATING PO INTAKE. NO OTHER CHANGES.
[2024-06-17 06:04] LABS: BASOPHILS ABSOLUTE AUTO 0.01 K/mm3 (0.00-0.23); BASOPHILS PERCENT AUTO 0 % (0-2); EOSINOPHILS PERCENT AUTO 3 % (0-6); Hematocrit 34.5 % (37.0-53.0); Hemoglobin 11.5 g/dL (13.5-17.5); IMMATURE GRAN ABSOLUTE AUTO 0.09 K/mm3 (0.00-0.10); IMMATURE GRAN PERCENT AUTO 2 % (0-1); LYMPHOCYTES ABSOLUTE AUTO 1.06 K/mm3 (0.84-5.20); LYMPHOCYTES PERCENT AUTO 18 % (21-46); MONOCYTES ABSOLUTE AUTO 0.26 K/mm3 (0.16-1.47); MONOCYTES PERCENT AUTO 4 % (4-13); Mean Corpuscular HGB 27.6 pg (26.0-34.0); Mean Corpuscular HGB Conc 33.3 g/dL (31.5-36.5); Mean Corpuscular Volume 83 fL (80-100); NEUTROPHILS ABSOLUTE AUTO 4.23 K/mm3 (1.96-9.15); NEUTROPHILS PERCENT AUTO 72 % (41-73); Platelet Count 236 K/mm3 (150-400); RDW Coefficient Variation 15.6 % (11.7-14.2); RDW Standard Deviation 46.9 fL (35.1-46.3); Red Blood Cell Count 4.17 M/mm3 (4.30-5.90); White Blood Cell Count 5.85 K/mm3 (4.00-11.30)
[2024-06-17 06:30] LABS: Albumin, Blood 2.1 g/dL (3.4-5.0); Albumin/Globulin Ratio 0.4 (0.8-1.8); Bilirubin, Total 0.4 mg/dL (0.1-1.0); Calcium, Blood 8.2 mg/dL (8.5-10.1); Creatinine, Blood 0.58 mg/dL (0.60-1.20); Globulin, Blood 5.7 g/dL (2.2-4.0); Potassium, Blood 3.8 mmol/L (3.5-5.5); Total Protein, Blood 7.8 g/dL (6.4-8.2)
[2024-06-17 07:25] VITALS: BP 183/116
[2024-06-17 08:45] LABS: Percent Saturation 17.4 % (20.0-50.0)
--- NOTE | 2024-06-17 09:14 | NUR ---
am note this rn assumed care at 0700. blood pressure hypertensive and received morning blood pressure medication. tele sinus rhyhthm/sinus tach 90-100s. spo2 >95% on room air. patient is alert and oriented x4. neuro is intact. patient can make needs known and uses call light appropriately. patient is independent in the room and adls. see shift assessment for further detials. Md Germain in to see patient at 0715 and informed plan for patient is to discharge home today. Md Michaels in room to see patient at 0830 and agreed that plan for patient to discharge home today.
[2024-06-17 09:31] VITALS: BP 164/115
[2024-06-17] MEDS ORDERED: Lisinopril 10 MG Tab PO ONE (10:00)
[2024-06-17] MEDS ORDERED: LISI20 PO (10:48)
[2024-06-17] MEDS ORDERED: PROBIOTIC ACID1 EAC8 PO (10:51)
[2024-06-17] MEDS ORDERED: SULTRIDS PO (10:51)
[2024-06-17] MEDS ORDERED: IBUP600 PO (10:51)
--- NOTE | 2024-06-17 11:15 | NUR ---
DISCHARGE INSTRUCTIONS this rn went over discharge instructions, importance of taking all of antibiotic medication even if feeling better, and a list of pcp for patient to establish and improtance of following up due to patient medication only being a 30 day supply. patient verbalized understanding. patient in room gathering belongings at this time and awaiting ride.
[2024-06-17 11:19] VITALS: BP 158/105
--- NOTE | 2024-06-17 11:27 | NUR ---
update-discharge patient left with all belongings and in no distress at 1120
== END 2024-06-17 11:25 | disposition home or self-care (01) | DRG 871 ==
LOC: ER 22:23 → ERHOLD 06-15 01:27 → PCU 06-15 01:27
PROVIDERS: Emergency Medicine; Family Medicine; ADMIT Internal Medicine
DX: A41.9 Sepsis, unspecified organism (principal); J18.9 Pneumonia, unspecified organism; J96.01 Acute respiratory failure with hypoxia; E87.1 Hypo-osmolality and hyponatremia; J90 Pleural effusion, not elsewhere classified; D64.9 Anemia, unspecified; F15.90 Other stimulant use, unspecified, uncomplicated; L97.529 Non-pressure chronic ulcer of other part of left foot with unspecified severity; M06.9 Rheumatoid arthritis, unspecified; E83.42 Hypomagnesemia; E83.39 Other disorders of phosphorus metabolism; R74.8 Abnormal levels of other serum enzymes; I10 Essential (primary) hypertension; G47.33 Obstructive sleep apnea (adult) (pediatric); F32.A Depression, unspecified; F17.210 Nicotine dependence, cigarettes, uncomplicated; E86.0 Dehydration; E66.9 Obesity, unspecified; E11.621 Type 2 diabetes mellitus with foot ulcer; L97.521 Non-pressure chronic ulcer of other part of left foot limited to breakdown of skin; L98.491 Non-pressure chronic ulcer of skin of other sites limited to breakdown of skin; Z86.79 Personal history of other diseases of the circulatory system; Z91.018 Allergy to other foods; Z88.8 Allergy status to other drugs, medicaments and biological substances; Z79.899 Other long term (current) drug therapy; Z86.19 Personal history of other infectious and parasitic diseases; Z68.32 Body mass index [BMI] 32.0-32.9, adult
CPT/HCPCS: 0241U; 36415; 71045; 71260; 80053; 80202; 80320; 81001; 82607; 82728; 82746; 82947; 83036; 83540; 83550; 83605; 83690; 83735; 84100; 84443; 84484; 85025; 85045; 85379; 85610; 85651; 85730; 86140; 86803; 87040; 87070; 87077; 87205; 93005; 93010; 93306; 94762; 96365-59; 96375-59; 99285-25; A9270; J0692; J1650; J1885; J3010; J3370; J3475; J7030; J7040; J7050; J7060; J7120; Q9967

== ENCOUNTER 2024-10-29 12:21 | Inpatient (IN) | payer OTHER ==
[~2024-10-29] VITALS: Ht 188 cm; Wt 123.9 kg
[2024-10-29] VITALS (9 sets, daily range): BP systolic 99–120; BP diastolic 72–84
[~2024-10-29 12:21] MED LIST changes: +DOCU100 PO; +HYDACE10B PO; +IBUP600 PO; +LISI20 PO; +PROBIOTIC ACID1 EAC8 PO; +SULTRIDS PO
[2024-10-29] MEDS ORDERED: NS 1,000 ML IV SCH ×2 (13:10→14:20)
[2024-10-29] MEDS ORDERED: Ondansetron HCl 2 MG / ML 2ML Vial IV ONE (13:20)
[2024-10-29] MEDS ORDERED: Morphine Sulfate 4 MG/1 ML Injection IV ONE (13:20)
[2024-10-29] MEDS ORDERED: Vancomycin (Pharmacy Consult) IV PRN (13:20)
[2024-10-29] MEDS ORDERED: Piperacillin/Tazobactam Sod 4.5 GM in NS 100 ML IV ONE (13:20)
[2024-10-29 13:24] LABS: BASOPHILS ABSOLUTE AUTO 0.01 K/mm3 (0.00-0.23); BASOPHILS PERCENT AUTO 0 % (0-2); EOSINOPHILS ABSOLUTE AUTO 0.01 K/mm3 (0.00-0.68); EOSINOPHILS PERCENT AUTO 0 % (0-6); Hematocrit 29.6 % (37.0-53.0); Hemoglobin 9.9 g/dL (13.5-17.5); IMMATURE GRAN ABSOLUTE AUTO 0.05 K/mm3 (0.00-0.10); IMMATURE GRAN PERCENT AUTO 1 % (0-1); LYMPHOCYTES ABSOLUTE AUTO 0.40 K/mm3 (0.84-5.20); LYMPHOCYTES PERCENT AUTO 5 % (21-46); MONOCYTES ABSOLUTE AUTO 0.24 K/mm3 (0.16-1.47); MONOCYTES PERCENT AUTO 3 % (4-13); Mean Corpuscular HGB Conc 33.4 g/dL (31.5-36.5); Mean Corpuscular Volume 81 fL (80-100); NEUTROPHILS ABSOLUTE AUTO 7.13 K/mm3 (1.96-9.15); NEUTROPHILS PERCENT AUTO 91 % (41-73); NRBC ABSOLUTE 0.00 K/mm3 (0.00-0.02); NRBC Auto 0.0 /100 WBC (0.0-0.2); Platelet Count 255 K/mm3 (150-400); RDW Coefficient Variation 14.8 % (11.7-14.2); RDW Standard Deviation 44.1 fL (35.1-46.3)
[2024-10-29 13:39] LABS: Alanine Aminotransfer (ALT/SGP 17.0 U/L (12-78); Albumin, Blood 2.4 g/dL (3.4-5.0); Albumin/Globulin Ratio 0.4 (0.8-1.8); Anion Gap 12.0 mmol/L (3-11); Aspartate Aminotrans (AST/SGOT 41.0 U/L (12-37); Bilirubin, Total 1.0 mg/dL (0.1-1.0); Blood Urea Nitrogen 23.0 mg/dL (8-24); CO2, Blood 19.0 mmol/L (21-32); Calcium, Blood 7.8 mg/dL (8.5-10.1); Chloride, Blood 103.0 mmol/L (98-108); Creatinine, Blood 0.9 mg/dL (0.60-1.20); Globulin, Blood 5.5 g/dL (2.2-4.0); Glucose, Blood 127.0 mg/dL (70-99); Potassium, Blood 3.9 mmol/L (3.5-5.5); Sodium, Blood 130.0 mmol/L (136-145); Total Protein, Blood 7.9 g/dL (6.4-8.2)
[2024-10-29] MEDS ORDERED: Vancomycin HCL 2,500 MG in NS 500 ML IV SCH (14:00)
[2024-10-29] MEDS ORDERED: Clindamycin 600mg in D5W 50 ML IV ONE (14:45)
[2024-10-29] MEDS ORDERED: HYDROmorphone HCl/Pf 1MG SYR IV PRN ×2 (15:25→16:45)
[2024-10-29] MEDS ORDERED: Ondansetron HCl 2 MG / ML 2ML Vial IV PRN ×2 (15:30→16:45)
[2024-10-29] MEDS ORDERED: Vancomycin (Pharmacy Consult) IV SCH (15:30)
[2024-10-29] MEDS ORDERED: NS 1,000 ML IV ONE (15:40)
[2024-10-29] MEDS ORDERED: OxyCODONE 5 mg/Acetamin 325 mg TABLET PO PRN (15:50)
[2024-10-29 16:20] LABS: BODY FLUID RBC 0.259 M/mm3 (0-0)
[2024-10-29 16:22] LABS: RBC Count, Synovial Fluid 259000 /mm3 (0-0); WBC Count, Synovial Fluid >200000 /mm3 (0-180)
[2024-10-29 16:37] LABS: Appearance, Synovial Fluid Turbid (Clear); Color, Synovial Fluid Red (None-P Yel); Lymphs, Synovial Fluid 6 % (0-15); Monocytes/Macrophages, Synovia 13 % (0-65); Neutrophils, Synovial Fluid 81 % (0-24)
[2024-10-29] MEDS ORDERED: FentaNYL Citrate 50 MCG/ML 2 ML Injection ONE (16:38)
[2024-10-29] MEDS ORDERED: FentaNYL Citrate 50 MCG/ML 2 ML Injection IV PRN (16:45)
[2024-10-29] MEDS ORDERED: Dexamethasone Sod Phos 10 MG/ML 1ML VIAL ONE (16:53)
--- NOTE | 2024-10-29 16:54 | NUR ---
PT TO PACU PREOPERATIVELY FROM ER VIA [facility] WITH RAHUL QUEZADA. PT SPOKE WITH DR BARNES AND DR JOHNS AND EMERGENTLY BROUGHT TO SURGERY SHORTLY AFTER. AT BEDSIDE PREOP. Pre-Op teaching done. Pt verbalizes understanding. CONSENTS SIGNED. BILATERAL LE SWOLLEN AD PAINFUL. PT TO OR EMERGENTLY.
[2024-10-29] MEDS ORDERED: HYDROmorphone HCl/Pf 1MG SYR ONE (17:04)
[2024-10-29] MEDS ORDERED: Ketorolac Tromethamine 30mg Vial ONE (17:55)
[2024-10-29] MEDS ORDERED: Ondansetron HCl 2 MG / ML 2ML Vial ONE (17:55)
[2024-10-29] MEDS ORDERED: Insulin Regular 100 UNIT/ML 10ML Vial SC SCH (18:00)
[2024-10-29] MEDS ORDERED: Clindamycin 600mg in D5W 50 ML IV SCH (20:00)
[2024-10-29] MEDS ORDERED: NS 250 ML IV PRN (20:40)
[2024-10-29] MEDS ORDERED: Lactobacil 2-S.Thermo-Bifido 1 1 Cap PO SCH (21:00)
[2024-10-29] MEDS ORDERED: Piperacillin/Tazobactam Sod 4.5 GM in NS 100 ML IV SCH (22:00)
[2024-10-30 02:31] VITALS: BP 102/88
[2024-10-30 05:04] LABS: BASOPHILS ABSOLUTE AUTO 0.01 K/mm3 (0.00-0.23); BASOPHILS PERCENT AUTO 0 % (0-2); EOSINOPHILS ABSOLUTE AUTO 0.00 K/mm3 (0.00-0.68); EOSINOPHILS PERCENT AUTO 0 % (0-6); Hematocrit 27.4 % (37.0-53.0); Hemoglobin 9.0 g/dL (13.5-17.5); IMMATURE GRAN ABSOLUTE AUTO 0.06 K/mm3 (0.00-0.10); IMMATURE GRAN PERCENT AUTO 1 % (0-1); LYMPHOCYTES ABSOLUTE AUTO 0.50 K/mm3 (0.84-5.20); LYMPHOCYTES PERCENT AUTO 7 % (21-46); MONOCYTES ABSOLUTE AUTO 0.21 K/mm3 (0.16-1.47); MONOCYTES PERCENT AUTO 3 % (4-13); Mean Corpuscular HGB Conc 32.8 g/dL (31.5-36.5); Mean Corpuscular Volume 83 fL (80-100); NEUTROPHILS ABSOLUTE AUTO 6.53 K/mm3 (1.96-9.15); NEUTROPHILS PERCENT AUTO 89 % (41-73); NRBC ABSOLUTE 0.00 K/mm3 (0.00-0.02); NRBC Auto 0.0 /100 WBC (0.0-0.2); Platelet Count 208 K/mm3 (150-400); RDW Coefficient Variation 15.2 % (11.7-14.2); RDW Standard Deviation 46.4 fL (35.1-46.3)
--- NOTE | 2024-10-30 05:05 | NUR ---
SHIFT SUMMARY NOC PT A/O X 4. PLEASANT AND COOPERATIVE WITH CARE. POST OP VSS. 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 SURGICAL DRESSING ARE C/D/I. PT PAIN AND INFECTION BEING TREATED PER EMAR. BLOOD CULTURE POSITIVE FOR GRAM POSITVE COCCI IN [place], AWARE AND ABX COVERAGE APPROPRIATE. PT Q6H CBG WITH 107 CNI AND 200 WITH 2 UNITS HUMALIN GIVEN PER SLIDING SCALE. PT CURRENTELY RESTING WITH BE IN LOWEST POSITION, AND CALL LIGHT WITHIN REACH.
[2024-10-30 05:29] LABS: Alanine Aminotransfer (ALT/SGP 17.0 U/L (12-78); Albumin, Blood 2.1 g/dL (3.4-5.0); Albumin/Globulin Ratio 0.4 (0.8-1.8); Anion Gap 12.0 mmol/L (3-11); Aspartate Aminotrans (AST/SGOT 38.0 U/L (12-37); Bilirubin, Total 0.7 mg/dL (0.1-1.0); Blood Urea Nitrogen 36.0 mg/dL (8-24); CO2, Blood 20.0 mmol/L (21-32); Calcium, Blood 7.6 mg/dL (8.5-10.1); Chloride, Blood 103.0 mmol/L (98-108); Creatinine, Blood 1.49 mg/dL (0.60-1.20); Globulin, Blood 5.2 g/dL (2.2-4.0); Glucose, Blood 179.0 mg/dL (70-99); Potassium, Blood 4.4 mmol/L (3.5-5.5); Sodium, Blood 131.0 mmol/L (136-145); Total Protein, Blood 7.3 g/dL (6.4-8.2)
[2024-10-30 06:30] VITALS: BP 118/87
[2024-10-30 07:23] VITALS: BP 110/78
[2024-10-30] MEDS ORDERED: Arginine/Glutamine/Calcium Hmb 1 Packet PO SCH (08:00)
[2024-10-30] MEDS ORDERED: Enoxaparin 40 MG/0.4 ML SYR SC SCH (09:00)
[2024-10-30] MEDS ORDERED: Insulin Human Lispro 100 Units/ML 3ML Syringe SC SCH (11:30)
--- NOTE | 2024-10-30 11:54 | NUR ---
DR KIRKPATRICK MADE AWARE IN PERSON OF POSITIVE BLOOD CULTURES C COCCI IN CHAINS.
[2024-10-30 15:42] VITALS: BP 127/80
--- NOTE | 2024-10-30 18:37 | NUR ---
SHIFT SUMMARY PT CONT LEVEL OF CARE. DR BARNES ROUNDED ON PT THIS AM REMOVED YOGI DRAIN FOR R ANKLE AND CHANGED DSG STATED THAT THEY LOOKED GOOD. CHANGED PT TO WT BEARING TOLERATED ON R FOOT AND L FOOT WITH POST OP SHOE TO BE IN PLACE. STATED HE WOULD ROUND ON PT AGAIN IN AM AND PLACE WOUND CARE ORDERS TOMORROW. PT WORKED WITH THERAPY THIS SHIFT AN IS AN ASSIST X1 TOLERATED PT TO BE ENCOURAGED TO BE UP IN CHAIR. PT NOTED TO GO SIT IN LOBBY WITH SIGNIFIGANT OTHER THIS SHIFT. AT 1730 HOSPITAL CLEANER NOTIFIED THIS NURSE THAT PT WAS CONCERNED OF SWELLING TO R FOOT THIS NURSE ASSESSED PT. PT NOTED TO HAVE WEAK/ FAINT PEDAL PULSE BUT WAS ABLE TO WIGGLE TOES, SKIN NOTED TO BE COOL PT STATED THAT THIS HAS BEEN HIS NORMAL FOR SEVERAL YEARS. THIS NURSE EDUCATED PT ON THE IMPORTANCE OF ELEVATING FEET TO REDUCE SWELLING AND TO MAINTAIN BLOOD FLOW PT HAS BEEN NOTED TO HAVE HIS FEET DANGLING OFF EDGE OF BED MAJORITY OF THIS SHIFT. WCTM AND PASS ALONG TO NEXT NURSE.
[2024-10-30 19:35] VITALS: BP 111/80
[2024-10-31 03:33] VITALS: BP 125/95
[2024-10-31 04:57] LABS: BASOPHILS ABSOLUTE AUTO 0.00 K/mm3 (0.00-0.23); BASOPHILS PERCENT AUTO 0 % (0-2); EOSINOPHILS ABSOLUTE AUTO 0.00 K/mm3 (0.00-0.68); EOSINOPHILS PERCENT AUTO 0 % (0-6); Hematocrit 26.8 % (37.0-53.0); Hemoglobin 8.7 g/dL (13.5-17.5); IMMATURE GRAN ABSOLUTE AUTO 0.06 K/mm3 (0.00-0.10); IMMATURE GRAN PERCENT AUTO 1 % (0-1); LYMPHOCYTES ABSOLUTE AUTO 0.82 K/mm3 (0.84-5.20); LYMPHOCYTES PERCENT AUTO 9 % (21-46); MONOCYTES ABSOLUTE AUTO 0.48 K/mm3 (0.16-1.47); MONOCYTES PERCENT AUTO 5 % (4-13); Mean Corpuscular HGB Conc 32.5 g/dL (31.5-36.5); Mean Corpuscular Volume 84 fL (80-100); NEUTROPHILS ABSOLUTE AUTO 7.46 K/mm3 (1.96-9.15); NEUTROPHILS PERCENT AUTO 85 % (41-73); NRBC ABSOLUTE 0.00 K/mm3 (0.00-0.02); NRBC Auto 0.0 /100 WBC (0.0-0.2); Platelet Count 265 K/mm3 (150-400); RDW Coefficient Variation 15.4 % (11.7-14.2); RDW Standard Deviation 46.6 fL (35.1-46.3)
[2024-10-31 05:28] LABS: Alanine Aminotransfer (ALT/SGP 21.0 U/L (12-78); Albumin, Blood 2.0 g/dL (3.4-5.0); Albumin/Globulin Ratio 0.4 (0.8-1.8); Anion Gap 12.0 mmol/L (3-11); Aspartate Aminotrans (AST/SGOT 41.0 U/L (12-37); Bilirubin, Total 0.4 mg/dL (0.1-1.0); Blood Urea Nitrogen 51.0 mg/dL (8-24); CO2, Blood 20.0 mmol/L (21-32); Calcium, Blood 7.7 mg/dL (8.5-10.1); Chloride, Blood 105.0 mmol/L (98-108); Creatinine, Blood 1.64 mg/dL (0.60-1.20); Globulin, Blood 5.4 g/dL (2.2-4.0); Glucose, Blood 153.0 mg/dL (70-99); Potassium, Blood 4.3 mmol/L (3.5-5.5); Sodium, Blood 133.0 mmol/L (136-145); Total Protein, Blood 7.4 g/dL (6.4-8.2)
[2024-10-31 07:54] VITALS: BP 129/87
[2024-10-31 11:59] LABS: Source, Urine Clean Catch
[2024-10-31] MEDS ORDERED: NS 1,000 ML IV SCH (12:00)
[2024-10-31 12:09] LABS: Bilirubin, Urine Neg (Neg); Color, Urine Yellow (P-Yellow); Glucose Qualitative, Urine Neg (Neg); Ketones, Urine Neg (Neg); Leukocyte Esterase, Urine Neg (Neg); Protein, Urine 2+ (Neg); Specific Gravity, Urine 1.015 (1.003-1.022); Urobilinogen, Urine NORM (Normal)
[2024-10-31 12:19] LABS: Red Blood Cells, Urine 0-2 /hpf (0-2); White Blood Cells, Urine 0-2 /hpf (0-5)
[2024-10-31 14:51] LABS: Anion Gap 11.0 mmol/L (3-11); Blood Urea Nitrogen 53.0 mg/dL (8-24); CO2, Blood 20.0 mmol/L (21-32); Calcium, Blood 7.6 mg/dL (8.5-10.1); Chloride, Blood 109.0 mmol/L (98-108); Creatinine, Blood 1.34 mg/dL (0.60-1.20); Glucose, Blood 157.0 mg/dL (70-99); Potassium, Blood 4.5 mmol/L (3.5-5.5); Sodium, Blood 135.0 mmol/L (136-145)
[2024-10-31 16:35] VITALS: BP 170/118
[2024-10-31 16:39] VITALS: BP 166/109
[2024-10-31] MEDS ORDERED: DIPH25 PO (16:52)
[2024-10-31] MEDS ORDERED: JUVEN PACKET1 EAC3 PO (16:52)
[2024-10-31] MEDS ORDERED: ONDA4ODT MM (16:53)
[2024-10-31] MEDS ORDERED: Percocet 5-3251 EACH PO (16:54)
--- NOTE | 2024-10-31 17:23 | NUR ---
SHIFT SUMMARY/DC SUMMARY DR BARNES ROUNDED ON PT THIS MORNING AND PLACED ORDERS FOR DSG CHANGES DRY DSG EVERY OTHER DAY DSG TO BE CHANGED ON 11/01/24 PER PROVIDER. UA ORDERED THIS SHIFT AND CAME BACK NEGATIVE. PROVIDER ORDER 2L ON NS BOLUS AND REDRAWN LABS. AROUND 1435 PT VOICED C/O TONGUE ITCHING AND SLIGHT SWELLING NOTED TO TONGUE. PROVIDER NOTIFED AND ORDERS RECIEVED FOR BENADRYL 25-50MG 50MG WAS GIVEN. PT STATED HE BELIEVED IT WAS CAUSED BY SOMETHING HE ATE IT HAPPED JUST AFTER HE FINISHED EATING HIS LUNCH AT 1445 PT STATED THAT HE FELT BETTER AND AROUND 1530 THIS NURSE WENT TO ACCESS PT AGAIN AND PT WAS NO WHERE TO BE FOUND AND IV POLE WAS MISSING FROM PT ROOM. THIS NURSE LOOKED AROUND ON THE FLOOR AND NOTIFIED SECURITY ABOUT 1545 PT WAS NOTED RELOCATED AND STATED THAT HE AND HIS SIGNIFIGANT OTHER WENT DOWNSTAIRS TO GET COFFEE AND OUTSIDE FOR FRESH AIR. PT WAS REEDUCATED THAT ITS HOPITIAL POLICY THAT THEY ARE NOT ALLOWED TO LEAVE THE FLOOR AND HE HAD TO NOTIFY HIS NURSE IF HE WAS GOING TO LEAVE. PT WAS DC THIS SHIFT AND DC INSTRUCTION GONE OVER WITH PT AND PT SIGNIFIGANT OTHER WHOM STATED UNDERSTANDING. HARDSCRIPT GIVEN TO PT AND WAS PLACED IN DC FOLDER. PT DC TO PRIVATE VEHICLE VIA
== END 2024-10-31 17:15 | disposition home health service (06) | DRG 854 ==
LOC: ER 12:21 → MEDS 12:22
PROVIDERS: Physician Assistant; Podiatrist Foot & Ankle Surgery; ADMIT Family Medicine
PROC: 0S9F3ZX Drainage of Right Ankle Joint, Percutaneous Approach, Diagnostic (ICD-10-PCS; 2024-10-29)
PROC: 3E03329 Introduction of Other Anti-infective into Peripheral Vein, Percutaneous Approach (ICD-10-PCS; 2024-10-29)
PROC: 0Y6Q0Z0 Detachment at Left 1st Toe, Complete, Open Approach (ICD-10-PCS; principal; 2024-10-29 16:30)
PROC: 0S9F0ZZ Drainage of Right Ankle Joint, Open Approach (ICD-10-PCS; 2024-10-29 16:30)
DX: A40.8 Other streptococcal sepsis (principal); E87.1 Hypo-osmolality and hyponatremia; E87.21 Acute metabolic acidosis; M86.172 Other acute osteomyelitis, left ankle and foot; L03.115 Cellulitis of right lower limb; L03.116 Cellulitis of left lower limb; M00.271 Other streptococcal arthritis, right ankle and foot; N17.9 Acute kidney failure, unspecified; Z66 Do not resuscitate; E11.69 Type 2 diabetes mellitus with other specified complication; F15.90 Other stimulant use, unspecified, uncomplicated; E66.811 Obesity, class 1; B95.4 Other streptococcus as the cause of diseases classified elsewhere; E88.09 Other disorders of plasma-protein metabolism, not elsewhere classified; E11.621 Type 2 diabetes mellitus with foot ulcer; L97.519 Non-pressure chronic ulcer of other part of right foot with unspecified severity; L97.529 Non-pressure chronic ulcer of other part of left foot with unspecified severity; F17.210 Nicotine dependence, cigarettes, uncomplicated; I10 Essential (primary) hypertension; G47.33 Obstructive sleep apnea (adult) (pediatric); M06.9 Rheumatoid arthritis, unspecified; D63.8 Anemia in other chronic diseases classified elsewhere; Z88.2 Allergy status to sulfonamides; Z88.8 Allergy status to other drugs, medicaments and biological substances; Z68.31 Body mass index [BMI] 31.0-31.9, adult; Z79.1 Long term (current) use of non-steroidal anti-inflammatories (NSAID); Z86.14 Personal history of Methicillin resistant Staphylococcus aureus infection
CPT/HCPCS: 20605; 36415; 71046; 73630; 80048; 80053; 81001; 82570; 82947; 83036; 83605; 84300; 85025; 85651; 86140; 87040; 87070; 87071; 87075; 87147; 87205; 88305; 88311; 89051; 93005; 93010; 96365-59; 96367-59; 96375-59; 97110; 97116; 97162; 99285-25; A9270; G0378; J1100; J1171; J1650; J1815; J1885; J2270; J2405; J2543; J2704; J3010; J3373; J7030; J7040; J7050

== ENCOUNTER 2024-12-12 20:45 | Inpatient (IN) | payer OTHER ==
[~2024-12-12] VITALS: Ht 188 cm; Wt 114.3 kg
[~2024-12-12 20:45] MED LIST changes: +DIPH25 PO; +JUVEN PACKET1 EAC3 PO; +ONDA4ODT MM
[2024-12-12 21:55] LABS: BASOPHILS ABSOLUTE AUTO 0.01 K/mm3 (0.00-0.23); BASOPHILS PERCENT AUTO 0 % (0-2); EOSINOPHILS ABSOLUTE AUTO 0.03 K/mm3 (0.00-0.68); EOSINOPHILS PERCENT AUTO 1 % (0-6); Hematocrit 33.0 % (37.0-53.0); Hemoglobin 10.6 g/dL (13.5-17.5); IMMATURE GRAN ABSOLUTE AUTO 0.03 K/mm3 (0.00-0.10); IMMATURE GRAN PERCENT AUTO 1 % (0-1); LYMPHOCYTES ABSOLUTE AUTO 0.70 K/mm3 (0.84-5.20); LYMPHOCYTES PERCENT AUTO 14 % (21-46); MONOCYTES ABSOLUTE AUTO 0.23 K/mm3 (0.16-1.47); MONOCYTES PERCENT AUTO 5 % (4-13); Mean Corpuscular HGB Conc 32.1 g/dL (31.5-36.5); Mean Corpuscular Volume 80 fL (80-100); NEUTROPHILS ABSOLUTE AUTO 3.90 K/mm3 (1.96-9.15); NEUTROPHILS PERCENT AUTO 80 % (41-73); NRBC ABSOLUTE 0.00 K/mm3 (0.00-0.02); NRBC Auto 0.0 /100 WBC (0.0-0.2); Platelet Count 442 K/mm3 (150-400); RDW Coefficient Variation 15.1 % (11.7-14.2); RDW Standard Deviation 43.6 fL (35.1-46.3)
[2024-12-12 22:18] LABS: Alanine Aminotransfer (ALT/SGP 19.0 U/L (12-78); Albumin, Blood 2.4 g/dL (3.4-5.0); Albumin/Globulin Ratio 0.3 (0.8-1.8); Anion Gap 10.0 mmol/L (3-11); Aspartate Aminotrans (AST/SGOT 39.0 U/L (12-37); Bilirubin, Total 0.7 mg/dL (0.1-1.0); Blood Urea Nitrogen 20.0 mg/dL (8-24); CO2, Blood 24.0 mmol/L (21-32); Calcium, Blood 9.2 mg/dL (8.5-10.1); Chloride, Blood 100.0 mmol/L (98-108); Creatinine, Blood 0.84 mg/dL (0.60-1.20); Globulin, Blood 7.1 g/dL (2.2-4.0); Glucose, Blood 185.0 mg/dL (70-99); Potassium, Blood 4.1 mmol/L (3.5-5.5); Sodium, Blood 130.0 mmol/L (136-145); Total Protein, Blood 9.5 g/dL (6.4-8.2)
[2024-12-13] MEDS ORDERED: Ketorolac Tromethamine 15mg Vial IV ONE (00:20)
[2024-12-13] MEDS ORDERED: Cefepime HCl 2,000 MG in NS 100 ML IV ONE (00:20)
[2024-12-13] MEDS ORDERED: NS 1,000 ML IV SCH ×2 (00:20→02:00)
[2024-12-13] MEDS ORDERED: HYDROcodone 5-APAP 325 TAB PO PRN (01:45)
[2024-12-13] MEDS ORDERED: Ondansetron HCl 2 MG / ML 2ML Vial IV PRN (01:45)
[2024-12-13] MEDS ORDERED: FLU VACC TS2025-26(6MOS UP)/PF 45 MCG/0.5 ML SYRINGE IM SCH (01:50)
[2024-12-13] MEDS ORDERED: Ketorolac Tromethamine 15mg Vial IV PRN (02:15)
[2024-12-13 02:17] LABS: C-Reactive Protein, High Sens. 149.0 mg/L (0.000-3.000)
[2024-12-13 03:01] VITALS: BP 124/84
[2024-12-13 03:35] LABS: BASOPHILS ABSOLUTE AUTO 0.01 K/mm3 (0.00-0.23); BASOPHILS PERCENT AUTO 0 % (0-2); EOSINOPHILS ABSOLUTE AUTO 0.04 K/mm3 (0.00-0.68); EOSINOPHILS PERCENT AUTO 1 % (0-6); Hematocrit 27.9 % (37.0-53.0); Hemoglobin 9.0 g/dL (13.5-17.5); IMMATURE GRAN ABSOLUTE AUTO 0.02 K/mm3 (0.00-0.10); IMMATURE GRAN PERCENT AUTO 1 % (0-1); LYMPHOCYTES ABSOLUTE AUTO 0.72 K/mm3 (0.84-5.20); LYMPHOCYTES PERCENT AUTO 18 % (21-46); MONOCYTES ABSOLUTE AUTO 0.24 K/mm3 (0.16-1.47); MONOCYTES PERCENT AUTO 6 % (4-13); Mean Corpuscular HGB Conc 32.3 g/dL (31.5-36.5); Mean Corpuscular Volume 79 fL (80-100); NEUTROPHILS ABSOLUTE AUTO 2.92 K/mm3 (1.96-9.15); NEUTROPHILS PERCENT AUTO 74 % (41-73); NRBC ABSOLUTE 0.00 K/mm3 (0.00-0.02); NRBC Auto 0.0 /100 WBC (0.0-0.2); Platelet Count 348 K/mm3 (150-400); RDW Coefficient Variation 15.1 % (11.7-14.2); RDW Standard Deviation 43.3 fL (35.1-46.3)
[2024-12-13 03:49] LABS: Prothrombin Time Results 12.3 Sec (9.7-11.5)
[2024-12-13 03:53] LABS: Alanine Aminotransfer (ALT/SGP 16.0 U/L (12-78); Albumin, Blood 2.1 g/dL (3.4-5.0); Albumin/Globulin Ratio 0.3 (0.8-1.8); Anion Gap 13.0 mmol/L (3-11); Aspartate Aminotrans (AST/SGOT 36.0 U/L (12-37); Bilirubin, Total 0.6 mg/dL (0.1-1.0); Blood Urea Nitrogen 22.0 mg/dL (8-24); CO2, Blood 20.0 mmol/L (21-32); Calcium, Blood 8.5 mg/dL (8.5-10.1); Chloride, Blood 104.0 mmol/L (98-108); Creatinine, Blood 0.88 mg/dL (0.60-1.20); Globulin, Blood 6.2 g/dL (2.2-4.0); Glucose, Blood 82.0 mg/dL (70-99); Magnesium, Blood 1.7 mg/dL (1.6-2.4); Potassium, Blood 4.1 mmol/L (3.5-5.5); Sodium, Blood 133.0 mmol/L (136-145); Total Protein, Blood 8.3 g/dL (6.4-8.2)
--- NOTE | 2024-12-13 06:10 | NUR ---
SHIFT SUMMARY/ ADMIT NOTE: PT was admitted from the ED about 0300. was admitted for wounds to feet. Was transferred into bed by sliding from one bed to the next. Was alert and responsive. Noted bandage to right ankle applied by ED. was informed in report that he had wounds to both feet. 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 Drainage to right ankle is present in small amounts and is seosangenous in nature. He stated that his pain level was 9/10 to the right ankle and 5/10 to left great toe area. Was given a norco per emar. Iv present to left forearm that was running NS with a pressure bag. Orders stated give 1000ml over 30 min. Then NS 1000 at 150ml/h x1. Finished NS with the pressure bag then started NS at 1000 at 150ml/h. Babak was noted to be sinus tach in the 110s.
[2024-12-13] MEDS ORDERED: Vancomycin HCL 2,500 MG in NS 500 ML IV ONE (06:50)
[2024-12-13] MEDS ORDERED: Vancomycin (Pharmacy Consult) IV SCH (07:00)
[2024-12-13] MEDS ORDERED: Cefepime HCl 2,000 MG in NS 100 ML IV SCH (08:00)
[2024-12-13 08:04] VITALS: BP 144/98
[2024-12-13] MEDS ORDERED: Lactobacil 2-S.Thermo-Bifido 1 1 Cap PO SCH (09:00)
[2024-12-13 11:52] VITALS: BP 157/107
[2024-12-13] MEDS ORDERED: D5W-1/2NS 1,000 ML IV SCH (12:50)
[2024-12-13] MEDS ORDERED: ASCO500 PO (13:11)
[2024-12-13] MEDS ORDERED: FERSU300 PO (13:12)
[2024-12-13] MEDS ORDERED: IBUP600 PO (13:13)
--- NOTE | 2024-12-13 18:42 | NUR ---
SHIFT SUMMARY; PT A/OX4, PLEASANT, AND COOPERATIVE WITH CARE. PT'S PAIN CONTROLLED W/ PAIN MEDICATION AND ANTIBIOTICS GIVEN PER EMAR. SUTURES FROM L GREAT TOE REMOVED PER DR. LEDBETTER ORDER. SUTURES APPEARED CRUSTED OVER AND PURULENT DISCHARGE SEEN. SUTURE REMOVAL PAINFUL FOR PAITENT AFTER DOSE OF PAIN MED ADMINISTRATION. DRESSINGS REAPPLIED PER ORDER. PT IS TO BE NPO AFTER MIDNIGHT FOR POSSIBLE PROCEDURE IN THE AM. VSS. PT ON TELE W/ SINUS TACH AT 103 BPM. BED IN LOW POSITION AND CALL LIGHT WITHIN REACH.
--- NOTE | 2024-12-13 19:25 | NUR ---
THIS LINK CUTTER HAS REVIEWED AND AGREES WITH ALL NOTES AND ASSESSMENTS BY RAHUL HAYEDN.
[2024-12-13] MEDS ORDERED: NS 250 ML IV PRN (20:40)
[2024-12-13] MEDS ORDERED: Insulin Human Lispro 100 Units/ML 3ML Syringe SC SCH (21:00)
[2024-12-13 21:23] VITALS: BP 154/105
[2024-12-14 00:45] VITALS: BP 150/106
--- NOTE | 2024-12-14 00:49 | NUR ---
NEW T ORDER FOR MALOX 10MLS Q6HRS PRN RECEIVED FROM THE PHOTOGRAPH RETOUCHER HOSPITALIST. ALSO NOTIFIED DR. DAVIS PT HAVING ST ELEVATIOS ON TELE, PT FEELS LIKLE"AIR BUBBLE TRAPPED" ON EPIGASTRIC AREA. PRN NORCO ADMINISTERED ORDERED. PER CONVERSTATION, CONTINUE TO MONITOR AND CALL BACK TO IF OTHER PAIN MED IS NEEDED. WILL NOTIFY CHARGE NURSE.
[2024-12-14] MEDS ORDERED: FentaNYL Citrate 50 MCG/ML 2 ML Injection IV PRN (01:25)
[2024-12-14 02:34] VITALS: BP 132/80
--- NOTE | 2024-12-14 03:31 | NUR ---
SHIFT SUMMARY PT FEBRILE, PO TYLENOL EFFECTIVE FOR FEVER. RECHECK 96.7. AFTER MIDNIGHT PT C/O SEVERE EPIGASTRIC AND BLE PAIN. PER ENTRY LEVEL MANAGEMENT,RUN OF SHORT ST-ELEVATION NOTED ON TELE STRIP, PROVIDER NOTIFIED. NEW ORDER FOR MAALOX AND FENTANYL PRN RECEIVED FROM DR. DAVIS. CONTINUED MONITORING. NO OTHER EVENTS ON TELE. AFTER RECEIVING FENTANYL AND ZOFRAN WELL MAALOX, PT REPORTS FEELING MUCH BETTER. NPO AFTER MIDNIGHT. IV ABX INFUSED ORDERED. PT IS A/O X4, ABLE TO MAKE HIS NEEDS KNOWN AND COOPERATIVE WITH CARE. BED AT THE LOWEST POSITION, CALL LIGHT W/I REACH.
[2024-12-14 07:03] LABS: BASOPHILS ABSOLUTE AUTO 0.01 K/mm3 (0.00-0.23); BASOPHILS PERCENT AUTO 0 % (0-2); EOSINOPHILS ABSOLUTE AUTO 0.15 K/mm3 (0.00-0.68); EOSINOPHILS PERCENT AUTO 4 % (0-6); Hematocrit 29.2 % (37.0-53.0); Hemoglobin 9.4 g/dL (13.5-17.5); IMMATURE GRAN ABSOLUTE AUTO 0.02 K/mm3 (0.00-0.10); IMMATURE GRAN PERCENT AUTO 1 % (0-1); LYMPHOCYTES ABSOLUTE AUTO 0.62 K/mm3 (0.84-5.20); LYMPHOCYTES PERCENT AUTO 15 % (21-46); MONOCYTES ABSOLUTE AUTO 0.20 K/mm3 (0.16-1.47); MONOCYTES PERCENT AUTO 5 % (4-13); Mean Corpuscular HGB Conc 32.2 g/dL (31.5-36.5); Mean Corpuscular Volume 80 fL (80-100); NEUTROPHILS ABSOLUTE AUTO 3.17 K/mm3 (1.96-9.15); NEUTROPHILS PERCENT AUTO 76 % (41-73); NRBC ABSOLUTE 0.00 K/mm3 (0.00-0.02); NRBC Auto 0.0 /100 WBC (0.0-0.2); Platelet Count 323 K/mm3 (150-400); RDW Coefficient Variation 15.1 % (11.7-14.2); RDW Standard Deviation 44.3 fL (35.1-46.3)
[2024-12-14 07:23] LABS: Anion Gap 10 mmol/L (3-11); Blood Urea Nitrogen 23 mg/dL (8-24); CO2, Blood 21 mmol/L (21-32); Calcium, Blood 8.2 mg/dL (8.5-10.1); Chloride, Blood 106 mmol/L (98-108); Creatinine, Blood 0.77 mg/dL (0.60-1.20); Glucose, Blood 113 mg/dL (70-99); Potassium, Blood 4.2 mmol/L (3.5-5.5); Sodium, Blood 133 mmol/L (136-145)
[2024-12-14 07:24] LABS: Vancomycin, Trough 30.7 ug/mL (5.0-10.0)
[2024-12-14 08:01] VITALS: BP 154/106
[2024-12-14 11:55] VITALS: BP 153/111
[2024-12-14 16:37] VITALS: BP 147/104
--- NOTE | 2024-12-14 19:24 | NUR ---
shift summary assumed care of pt who is a/o x4 very pleasnt and cooperative with care. pt dnr and awaiting consult with ortho. pt medicated for right and left foot pain. Ortho into see pt. spoke with MD who stated pt refused procedure for BKA and will like to persue iv antibiotics for infection. Pt no longer NPO and can eat, pt medicated for pain and has been quietly sitting up in bed call light within reach.
--- NOTE | 2024-12-14 19:27 | NUR ---
QTC notification from [employer] Ele[facility]ated QTC called into Dr Montoya Vancomycin critical called into Dr Montoya
--- NOTE | 2024-12-14 19:32 | NUR ---
DRESSING CHANGE DRESSING TO LEFT FOOT BIG TOE DONE, DRESSING REMOVED AND CLEANED WITH CLEANSER , MINIMAL DRAINAGE NOTED WOUND BED WAS DRIED, XEROFORM APPLIED AND COVERED WITH 4X4 AND KERLIX. PT THU WELL, BUT SORE TO THE TOUCH. RIGHT ANKLE WAS CLEANSED WITH FACULTY DEAN, DRIED WITH 4X4. MODERATE AMOUNT OF SEROUS DRAINAGE NOTED, PT VERY SENSITIVE TO THE TOUCH, DID NOT THU WELL. XEROFORM, ABD AND KERLIX WAS APPLIED.
--- NOTE | 2024-12-14 19:37 | NUR ---
2 IV ATTEMPTS MULTIPLE ATTEMPTS WERE MADE AT STARTING IV BUT PT DID NOT THU WELL, PT PULL AND CRIED OUT WHEN POKED. AFTER EXPLAINING TO PT THE NEED FOR NEW IV I TOLD HIM I WILL GIVE HIM TIME TO CALM BEFORE ATTEMPTING AGAIN. PT WILL NEED ADVANCED IV PLACMENT FOR ANTIBIOTIC USE FOR DISCHARGE.
[2024-12-14 20:43] VITALS: BP 164/105
[2024-12-14 20:59] LABS: Vancomycin, Random 16.1 ug/mL
[2024-12-14] MEDS ORDERED: Ondansetron HCl 2 MG / ML 2ML Vial IV ONE (21:00)
[2024-12-15] VITALS (7 sets, daily range): BP systolic 147–164; BP diastolic 100–129
[2024-12-15] MEDS ORDERED: HydrALAZINE HCl 20 MG / ML 1ML Vial IV PRN (01:50)
--- NOTE | 2024-12-15 06:39 | NUR ---
SHIFT SUMMARY PT C/O BILAT FOOT PAIN DUE TO WOUNDS- MEDICATED PER EMAR WITH NORCO, TORADOL, AND FENTANYL. DRESSINGS C/D/I. PT WITH LOW GRADE FEVER- TMAX 99.3. IV ANTIBIOTICS AND IVF GIVEN PER ORDER. PT SLEPT INTERMITTENTLY DURING THE NIGHT.
[2024-12-15] MEDS ORDERED: Insulin Glargine 100 Unit/ML 3 ML SYR SC SCH (09:00)
[2024-12-15 14:29] LABS: Vancomycin, Trough 16.0 ug/mL (5.0-10.0)
--- NOTE | 2024-12-15 16:49 | NUR ---
SHIFT SUMMARY: PATIENT IS A&OX4/INDEPENDENT IN THE ROOM. HE IS PAINFUL; GIVING PRNS FOR PAIN WHEN AVAILABLE. WOUND CARE PROVIDED. HE IS RECEIVING IV ANTIBIOTICS; PENDING PICC LINE PLACEMENT. HE IS IN BED, RESTING, RESPIRATIONS EVEN AND UNLABORED, CONTINUOUS PULSE OX IN PLACE AND TELE; NO EVENTS. CALL LIGHT WITHIN REACH, NO SIGNS OR SYMPTOMS OF DISTRESS, PLAN OF CARE ONGOING.
[2024-12-16] VITALS (7 sets, daily range): BP systolic 139–180; BP diastolic 95–117
--- NOTE | 2024-12-16 06:21 | NUR ---
SHIFT SUMMARY PT SLEPT INTERMITTENTLY DURING THE NIGHT. CONTINUES ON BEDREST. DRESSINGS TO BILAT FEET C/D/I. MEDICATED FOR PAIN WITH IBUPROFEN AND FENTANYL PER EMAR. IV ANTIBIOTICS CONTINUE PER ORDER. PT REMAINED AFEBRILE THIS SHIFT.
--- NOTE | 2024-12-16 17:20 | NUR ---
SHIFT SUMMARY: PATIENT A/OX4, PLEASANT AND COOPERATIVE c CARE. PATIENT MEDICATED FOR FEET PAIN PER EMAR c MOD EFFECT. DRESSING CHANGED TO FEET PER ORDER. PATIENT RECEIVED SCHEDULED MEDS/ABX PER EMAR. PATIENT ON TELE, SR HR IN THE 90'S BPM c OCCASIONAL BBB/PROLONG QTC 0.51. PATIENT ON ISOLATION FOR HX OF MRSA. PATIENT HAS MOD APPETITE, CONTINENT OF BLADDER AND USES URINAL IN BED. VITAL SIGNS REVIEWED. BED IN LOWEST POSTION. CALL LIGHT IN REACH.
[2024-12-17 05:21] VITALS: BP 162/105
--- NOTE | 2024-12-17 06:43 | NUR ---
SHIFT SUMMARY: Pt is admitted for feet wounds and is a full code. Is alert and able to make needs known. ADLs have been 1p. Had a BM this shift declined using bed odell. Wanted to use the rest room. This LN advised against trying to go that far with the pain that would be caused by walking. Offered bed side commode as the compromise. He accepted this. When transferring to bedside commode was noted to be a little unsteady as he was trying to find the least painful way of standing and weight being. Did make it to with 1p minimal and SBA going back to bed. Pain was managed with PRN medications. Babak noted sinus in the 90s with bundle branch and no events. On ISO for MRSA
[2024-12-17 07:46] VITALS: BP 155/95
[2024-12-17 16:14] VITALS: BP 145/98
--- NOTE | 2024-12-17 16:45 | NUR ---
SHIFT SUMMARY: PATIENT HAS HAD NO NEW CHANGES THIS SHIFT. PATIENT MEDICATED FOR FEET PAIN PER EMAR c GOOD EFFECT. DRESSING CHANGED TO FEET PER ORDER. PATIENT HAS HAD NO EVENTS ON TELE, SR IN THE HIGH 90'S BPM. PATIENT RECEIVED SCHEDULED IV ABX/PO MEDS PER EMAR, GOOD APPETITE, CONTINENT OF BLADDER AND USES URINAL INDEPENDENTLY. PATIENT WAS ACCEPTED TO [facility], INSURANCE AUTH HAS APPROVED PER RAHUL BARNETT. PATIENT STILL NEEDING PICC LINE PLACEMENT FOR [facility] ABX, [facility] DRIVERDANY AND RAHUL BARNETT/PIN MAKER ARE AWARE. VITALS SIGNS REVIEWED. BED IN LOWEST POSITION. CALL LIGHT IN REACH.
[2024-12-17 19:54] VITALS: BP 149/95
[2024-12-17 21:32] LABS: Creatinine, Blood 0.86 mg/dL (0.60-1.20); Vancomycin, Trough 15.2 ug/mL (5.0-10.0)
[2024-12-17 23:57] VITALS: BP 158/96
[2024-12-18 04:05] VITALS: BP 155/96
[2024-12-18 05:28] LABS: Hematocrit 26.6 % (37.0-53.0); Hemoglobin 8.7 g/dL (13.5-17.5); Mean Corpuscular HGB Conc 32.7 g/dL (31.5-36.5); Mean Corpuscular Volume 81 fL (80-100); NRBC ABSOLUTE 0.00 K/mm3 (0.00-0.02); NRBC Auto 0.0 /100 WBC (0.0-0.2); Platelet Count 384 K/mm3 (150-400); RDW Coefficient Variation 15.3 % (11.7-14.2); RDW Standard Deviation 44.8 fL (35.1-46.3)
[2024-12-18 05:57] LABS: Anion Gap 9.0 mmol/L (3-11); Blood Urea Nitrogen 22.0 mg/dL (8-24); CO2, Blood 22.0 mmol/L (21-32); Calcium, Blood 8.5 mg/dL (8.5-10.1); Chloride, Blood 107.0 mmol/L (98-108); Creatinine, Blood 0.72 mg/dL (0.60-1.20); Glucose, Blood 87.0 mg/dL (70-99); Potassium, Blood 4.1 mmol/L (3.5-5.5); Sodium, Blood 134.0 mmol/L (136-145)
--- NOTE | 2024-12-18 06:32 | NUR ---
SHIFT SUMMARY: Pt is admitted for feet wounds and is a full code. Is alert and able to make needs known. ADLs have been 1p. Pain was managed with PRN medications. Babak noted sinus in the 80s with bundle branch and no events. On ISO for MRSA
[2024-12-18 07:45] VITALS: BP 137/96
[2024-12-18 17:13] VITALS: BP 148/97
--- NOTE | 2024-12-18 17:54 | NUR ---
SHIFT SUMMARY PT A&OX4, VSS, BEDRIDDEN AT THIS TIME, TOLERATING PO, VOIDING, AND PAIN MANAGED PER EMAR. WOUND CARE/DRESSING CHANGE COMPLETED PER ORDER. PICC PLACED THIS SHIFT. IV ABX INFUSED. PLAN FOR D/C TO [facility], SEE CARE COORDINATION NOTE FOR UPDATE. NO OTHER ACUTE CHANGES. CALL LIGHT WITHIN REACH AND PT ABLE TO MAKE NEEDS KNOWN.
[2024-12-18 20:45] VITALS: BP 157/111
[2024-12-19 03:04] VITALS: BP 153/101
--- NOTE | 2024-12-19 03:46 | NUR ---
SHIFT SUMMARY: PT AOX4. VSS. PT COMPLAINING OF SEVERE PAIN, MEDICATED AROUND THE CLOCK WITH FENTANYL OR OXYCODONE. DRESSINGS TO BOTH FEET ARE C/D/I. CALL LIGHT IS WITHIN REACH. BED IS LOW AND LOCKED.
[2024-12-19 07:40] VITALS: BP 150/100
--- NOTE | 2024-12-19 08:10 | NUR ---
NOTE CHARGE NURSE GEMMA REPORTED OK TO GIVE FENT IV. PT ON CONT PULSE OX, SPO2 IS 96%, PT REPORTS NO SOB. PT REPORTS 10/10 PAIN THIS AM,
[2024-12-19] MEDS ORDERED: HYDROcodone 5-APAP 325 TAB PO PRN (10:45)
[2024-12-19] MEDS ORDERED: MASOPHEN325 M3 PO (11:58)
[2024-12-19] MEDS ORDERED: AMLO5 PO (11:59)
[2024-12-19] MEDS ORDERED: DOCU100 PO (12:00)
[2024-12-19] MEDS ORDERED: CEFEPIME HCL2 G1 IV (12:00)
[2024-12-19] MEDS ORDERED: HYDMOR4 PO (12:01)
[2024-12-19] MEDS ORDERED: VANCOMYCIN1.25 GM/24 IV (12:02)
[2024-12-19] MEDS ORDERED: VISBIOME 112.51 EACH PO (12:03)
--- NOTE | 2024-12-19 17:17 | NUR ---
DISCHARGE NOTE PT A&OX4. PT ADMITTED DUE TO WOUND ON FOOT. PT IN CONTACT FOR MRSA HX. PT ABLE TO STAND AND SIT. PT HAS BEDREST ORDERS. PT REPORTS NO CHEST PAIN. PT REPORTS GENERALIZED PAIN IN FEET. PT ACHS, INSULIN GIVEN ONCE FOR LUNCH. MEDICATED PER EMAR. DR. HALL ORDERED FACILITY DISCHARGE. CASE MANAGEMENT ARRANGED TRANSPORT. PT HAS WOUND CARE ORDERS. ORDERS STATE CHANGE DRESSING DAILY OR PRN. WOUND CARE DRESSING NOT COMPLETE DURING THIS SHIFT. THIS RN WRAPPED KATHLEEN WRAP OVER DRESSING PER FIELD CLINICAL ENGINEER RECOMENDATION. [facility] [place] [facility] CAME TO ESCORT PT, PT MEDICATED WITH PO DILAUDID BEFORE DISCHARGE. THIS RN GAVE REPORT TO RN AT [facility] IN [place]. THIS RN REPORTED PT MISSED X1 DOSE TODAY OF IV VANCO AND CEFEPINE DUE TO TIME OF DISCHARGE. BREAK RN COMPLETED DISCHARGE. HARD SCRIPT IN FOLDER, COPY IN CHART.
== END 2024-12-19 17:12 | DRG 872 ==
LOC: ER 20:45 → MEDS 20:46 → ENPENDDIS 12-19 11:17 → MEDS 12-19 17:12
PROVIDERS: Internal Medicine; Physician Assistant; ADMIT Student in an Organized Health Care Education/Training Program
PROC: 3E03329 Introduction of Other Anti-infective into Peripheral Vein, Percutaneous Approach (ICD-10-PCS; principal; 2024-12-13)
PROC: 02HV33Z Insertion of Infusion Device into Superior Vena Cava, Percutaneous Approach (ICD-10-PCS; 2024-12-18)
DX: A41.9 Sepsis, unspecified organism (principal); M00.9 Pyogenic arthritis, unspecified; E87.20 Acidosis, unspecified; E87.1 Hypo-osmolality and hyponatremia; M86.8X7 Other osteomyelitis, ankle and foot; R65.20 Severe sepsis without septic shock; I10 Essential (primary) hypertension; M06.9 Rheumatoid arthritis, unspecified; D64.9 Anemia, unspecified; E86.0 Dehydration; F32.A Depression, unspecified; G47.33 Obstructive sleep apnea (adult) (pediatric); E11.69 Type 2 diabetes mellitus with other specified complication; F17.210 Nicotine dependence, cigarettes, uncomplicated; E66.9 Obesity, unspecified; M65.871 Other synovitis and tenosynovitis, right ankle and foot; F15.10 Other stimulant abuse, uncomplicated; Z86.19 Personal history of other infectious and parasitic diseases; Z89.412 Acquired absence of left great toe; Z79.84 Long term (current) use of oral hypoglycemic drugs; Z79.899 Other long term (current) drug therapy; Z88.2 Allergy status to sulfonamides; Z88.8 Allergy status to other drugs, medicaments and biological substances
CPT/HCPCS: 36415; 36569; 71046; 73630; 73701; 80048; 80053; 80202; 82565; 82947; 83605; 83690; 83735; 84484; 85025; 85027; 85610; 86141; 87040; 93005; 93010; 94660; 94760; 94762; 96365; 96374; 96375; 96376; 99284-25; A9270; G0378; J0360; J0692; J1815; J1885; J2405; J3010; J3373; J7030; J7040; J7042; J7050; Q9967